=== PATIENT | female | born 1935 | race Caucasian/White ===

== ENCOUNTER 2019-07-28 12:51 | Outpatient (CLI) | payer MEDICARE, OTHER, SELFPAY ==
--- NOTE | 2019-07-28 14:00 | ECG_ITS ---
Measurements Intervals [place] Rate: 71 P: 60 ND: 120 QRS: -31 QRSD: 138 T: 90 QT: 417 QTc: 456 Interpretive Statements SINUS RHYTHM LEFT AXIS DEVIATION LEFT BUNDLE BRANCH BLOCK BASELINE ARTIFACT- I, II, III, AVR, AVL, AVF ABNORMAL ECG Electronically Signed On 07-28-2019 14:21:48 ENGINEERING DEPARTMENT CHAIR by Chad Crenshaw D.O.
[2019-07-28 14:27] LABS: Basophils Percent Auto 0.4 % (0.2-1.2); Eosinophils Absolute Auto 0.1 K/mm3 (0-0.3); Hematocrit 43.3 % (37.0-47.0); Hemoglobin 13.9 g/dL (12.0-15.0); Immature Granulocyte Absolute 0.01 K/mm3 (0.00-0.031); Immature Granulocyte Percent A 0.2 % (0-0.5); Lymphocytes Absolute Auto 1.45 K/mm3 (0.9-3.2); Lymphocytes Percent Auto 26.1 % (18.3-44.2); Mean Corpuscular HGB Conc 32.1 g/dl (32-36); Mean Corpuscular Hemoglobin 30.3 pg (26-34); Mean Corpuscular Volume 94.3 fl (80-100); Mean Platelet Volume 9.6 fl (7.4-10.4); Monocytes Absolute Auto 0.5 K/mm3 (0.1-0.6); Monocytes Percent Auto 9.4 % (2.6-8.5); Neutrophils Absolute Auto 3.5 K/mm3 (1.3-6.7); Neutrophils Percent Auto 61.9 % (45.5-73.1); Platelet Count Result 239 k/mm3 (150-375); Red Blood Count 4.59 M/mm3 (4.2-5.4); Red Cell Distribution Width 13.6 % (11.5-14.5); White Blood Count 5.6 K/mm3 (4.5-10.0)
[2019-07-28 14:30] LABS: Add Urine Microscopic? NO; Appearance Urine Clear (Clear); Bacteria Urine Trace /hpf; Bilirubin Urine Negative (Negative); Blood Urine Negative (Negative); Color Urine Yellow (Yellow); Glucose Urine UA Negative (Negative); Ketones Urine Negative (Negative); Leukocyte Esterase Ur Negative LEU/UL (Negative); Mucus Urine Rare /lpf; Nitrate Urine Negative (Negative); Protein Urine Negative (Negative); Specific Grav Ur 1.019 (1.001-1.035); Squamous Epithelial Cell Urine Rare /hpf (Few); Urobilinogen Urine Negative mg/dL (<2.0); WBC Urine 0-3 /hpf
[2019-07-28 14:36] LABS: Prothrombin Time 12.5 Seconds (11.1-14.7)
[2019-07-28 14:37] LABS: Urine Cotinine NEGATIVE
[2019-07-28 14:47] LABS: Albumin Level 4.3 g/dL (3.5-5.1); Blood Urea Nitrogen 23 mg/dL (7-17); Calcium 9.5 mg/dL (8.4-10.2); Carbon Dioxide 30 mmol/L (22-30); Chloride 102 mmol/L (98-107); Estimated Glomerular Filt Rate > 60; Glucose 99 mg/dL (65-105); Potassium 4.2 mmol/L (3.4-5.0); Sodium 140 mmol/L (137-145)
[2019-07-28 16:54] LABS: Hemoglobin A1C 5.7 % (<5.7)
== END 2019-07-28 12:52 | disposition home or self-care (01) ==
LOC: ANHSURGERY 12:55
PROVIDERS: PCP Family Medicine; Visit Provider Orthopaedic Surgery
DX: Z41.9 Encounter for procedure for purposes other than remedying health state, unspecified (principal); I44.7 Left bundle-branch block, unspecified; R94.31 Abnormal electrocardiogram [ECG] [EKG]
CPT/HCPCS: 36415; 80048; 80307; 81003; 82040; 83036; 85025; 85610; 85730; 86850; 86900; 86901; 87081; 93005

== ENCOUNTER 2019-10-05 14:41 | Outpatient (CLI) | payer MEDICARE, OTHER, SELFPAY ==
--- NOTE | ~2019-10-05 | MM_ITS ---
EXAMINATION: MM screening kitty BI w july HISTORY: Screening mammogram TECHNIQUE: Craniocaudal and mediolateral oblique 3-D tomosynthesis images were obtained and synthetic 2-D images were generated. CAD analysis was submitted and interpreted. COMPARISON: 08/09/2018 diagnostic left digital mammogram and limited left breast ultrasound 08/01/2018, 07/27/2017, 07/22/2016 bilateral digital screening mammogram examinations BREAST PARENCHYMAL COMPOSITION: There are scattered areas of fibroglandular density. FINDINGS: There is no evidence of suspicious mass, calcification, or architectural distortion to sugg est malignancy in either breast. There has been no suspicious interval change. IMPRESSION: 1. No mammographic evidence of malignancy. 2. Recommend routine screening mammography in one year. BI-RADS Category 1: Negative Reviewed, dictated and finalized at location A. ONAL COMPUTER SPECIALIST
== END 2019-10-05 14:42 | disposition home or self-care (01) ==
LOC: ANHIMG 14:51
PROVIDERS: PCP Family Medicine; Visit Provider Obstetrics & Gynecology
DX: Z12.31 Encounter for screening mammogram for malignant neoplasm of breast (principal)
CPT/HCPCS: 77063; 77067

== ENCOUNTER 2019-10-06 11:00 | Outpatient (RCR) | payer MEDICARE, OTHER, SELFPAY ==
--- NOTE | 2019-09-11 16:22 | PTOPEVAL ---
INITIAL PHYSICAL THERAPY EVALUATION and PLAN OF CARE Thank you for referring Katrin Rider to [facility]. Please review, sign, date and return this plan of care BETTY. She will be seen in PT 2x/wk x 4 wks. I agree with and certify that the following plan of care is medically necessary. Referring Physician Date Admitting Provider: Attending Provider: Lane Mehta MD Referring Provider: *PT Outpatient Evaluation Start: 09/11/19 14:47 Freq: Status: Active Protocol: Document 09/11/19 14:47 WILL (Rec: 09/11/19 16:22 WILL [id number]) Therapy Assessment Status Assessment Status Assessment Status Evaluation Outpatient Past Medical History Neurological History Hx Neurological Disorders No Significant History Cardiovascular History Hx Deep Vein Thrombosis Yes: 08/31/2019 Hx Other Cardiac Disorders Yes: DENEIS CARDIAC SYMPTOMS Respiratory History Hx Respiratory Disorders No Significant History Gastrointestinal History Hx Appendectomy Yes: 1971 Genitourinary History Hx Genitourinary Disorders No Significant History Musculoskeletal History Hx Arthritis Yes: GENERALIZED Hx Joint Replacement Yes: R TKA 08/08/19 Hx Orthopedic Surgery Yes: LT ROTATOR CUFF REPAIR JANUARY 2019 Hx Other Musculoskeletal Disorders Yes: HERE FOR RT TOTAL KNEE REPLACEMENT Hematological History Hx Hematological Disorders No Significant History Endocrine History Hx Endocrine Disorders No Significant History HEENT History Hx Cataracts Yes: BILATERAL SURGERY Hx Tonsillectomy Yes Hx Other HEENT Disorders Yes: GLASSES, SEASONAL ALLERGIES Integumentary History Hx Shingles Yes: HX OF RT WAIST Reproductive History Hx Tubal Ligation Yes Psychosocial History Hx Psychiatric Disorders No Significant History Pain History History of Any Previous or Ongoing No Significant History Instance of Pain Anesthesia History Hx Anesthesia Reactions No Significant History Evaluation Information Problem Diagnosis s/p R TKA Onset 08/08/19 Additional Evaluation Detail DVT - 08/31/2019 - wearing SIERRA Subjective Information hospitalized - 2 nights, home Query Text:As Reported By Patient/ health - 2x/wk ~ 4 visits CPM Family - used it HEP - ankle pumps, quad sets, SAQ, LAQ, SLR, gastroc stretching Sleeping on/off okay - taking Magnesium - sleeping a little better. Mornings not too bad. Begins
--- NOTE | 2019-10-06 12:10 | PTOPEVAL ---
PHYSICAL THERAPY DISCHARGE SUMMARY Thank you for referring Katrin Rider to [facility]. She has progressed well, met goals set, and ready for d/c to [facility]. I agree with Katrin Rider's discharge from physical therapy. Referring Physician Date Admitting Provider: Attending Provider: Lane Mehta MD Referring Provider: *PT Outpatient Evaluation Start: 09/11/19 14:47 Freq: Status: Active Protocol: Document 10/06/19 11:00 WILL (Rec: 10/06/19 12:10 WILL [id number]) Therapy Assessment Status Assessment Status Assessment Status Discharge Evaluation Information Problem Subjective Information Katrin Rider states that her knee Query Text:As Reported By Patient/ has stiffness rather than pain Family . She measures her R knee every morning - swelling has been about the same. She hasn 't gone down her basement steps as of yet, but has no difficulty with steps from garage to house. She has returned to usual household activities as well as back to driving without difficulties. Pain Assessment Timing of Pain Assessment Timing of Pain Assessment Assessment Pain Scale Pain Scale Used Numeric (1 - 10) Self Report Pain Assessment Right Knee(s) Reported Pain Level 0 Other Pain Description stiffness Current Pain Intensity 0 Lowest Pain Intensity 0 Greatest Pain Intensity 2 Pain Score Pain Score 0: Self Report Lower Extremity Range of Motion Knee Range of Motion Right Knee Flexion Range of Motion - Active 120 Knee Extension Range of Motion - Active 0 Query Text: Knee Range of Motion Limitations Edema Lower Extremity Muscle Strength Testing Hip Strength Right Hip Flexion Strength 4+ Good + Hip Extension Strength 4+ Good + Hip Abduction Strength 4- Good - Hip Medial Rotation Strength 5 Normal Hip Lateral Rotation Strength 5 Normal Knee Strength Right Knee Flexion Strength 5 Normal Knee Extension Strength 5 Normal Gait Assessment Gait Pattern Assessment Gait Pattern No Deviations/Normal Other Gait Observations symmetrical gait pattern, arm swing, pelvic/trunk rotation Stair Climbing Assessment Stair Climbing Assessment Stair Climbing Assistive Devices Railings Weight Bearing Status - Left Full Weight Bearing Status - Right Full Maintains Weight Bearing Status Yes Number of Steps Climbed (Steps) 4 Number of Repetitions (Repetitions) 2
== END 2019-10-06 12:10 | disposition home or self-care (01) ==
LOC: ANHHIPT 11:00
PROVIDERS: PCP Family Medicine; Visit Provider Orthopaedic Surgery
DX: Z47.1 Aftercare following joint replacement surgery (principal); Z96.651 Presence of right artificial knee joint
CPT/HCPCS: 97110; 97161

== ENCOUNTER 2020-04-04 12:41 | Outpatient (CLI) | payer MEDICARE, OTHER, SELFPAY ==
--- NOTE | ~2020-04-04 | US_ITS ---
EXAMINATION: US venous doppler LE RT DATE: 04/04/2020 13:28 INDICATION: Acute embolism and thrombosis of the right peroneal vein. TECHNIQUE: Grayscale ultrasound images without and with compression and Doppler ultrasound images of the right lower extremity veins were obtained. COMPARISON: None. FINDINGS: The visualized portions of right common femoral vein, profunda (deep) femoral vein, femoral vein, pop liteal vein, peroneal trunk, posterior tibial veins, peroneal veins, gastrocnemius vein and greater s aphenous vein outflow are patent. IMPRESSION: 1. No deep venous thrombosis in the right lower limb. Reviewed, dictated and finalized at location A.
== END 2020-04-04 12:42 | disposition home or self-care (01) ==
PROVIDERS: PCP Family Medicine; Visit Provider Family Medicine
DX: I82.451 Acute embolism and thrombosis of right peroneal vein (principal)
CPT/HCPCS: 93971

== ENCOUNTER 2020-10-23 09:58 | Outpatient (CLI) | payer MEDICARE, OTHER, SELFPAY ==
--- NOTE | ~2020-10-23 | MM_ITS ---
EXAMINATION: MM screening kitty BI w july HISTORY: Screening TECHNIQUE: Craniocaudal and mediolateral oblique 3-D tomosynthesis images were obtained and synthetic 2-D images were generated. CAD analysis was submitted and interpreted. COMPARISON: Comparison to multiple prior studies sequentially, with oldest reviewed study dated 06/24. BREAST PARENCHYMAL COMPOSITION: There are scattered areas of fibroglandular density. FINDINGS: There is no evidence of suspicious mass, calcification, or architectural distortion to sugg est malignancy in either breast. There has been no suspicious interval change. IMPRESSION: 1. No mammographic evidence of malignancy. 2. Recommend routine screening mammography in one year. BI-RADS Category 1: Negative Reviewed, dictated and finalized at location A. C APPLICATION DEVELOPER
== END 2020-10-23 09:59 | disposition home or self-care (01) ==
LOC: ANHIMG 09:59
PROVIDERS: PCP Family Medicine; Visit Provider Nurse Practitioner Family
DX: Z12.31 Encounter for screening mammogram for malignant neoplasm of breast (principal)
CPT/HCPCS: 77063; 77067

== ENCOUNTER 2021-10-27 10:31 | Outpatient (CLI) | payer MEDICARE, OTHER, SELFPAY ==
--- NOTE | ~2021-10-27 | MM_ITS ---
EXAMINATION: MM screening kitty BI w july HISTORY: Screening TECHNIQUE: Craniocaudal and mediolateral oblique 3-D tomosynthesis images were obtained and synthetic 2-D images were generated. CAD analysis was submitted and interpreted. COMPARISON: Comparison to multiple prior studies sequentially, with oldest reviewed study dated 06/25. BREAST PARENCHYMAL COMPOSITION: There are scattered areas of fibroglandular density. FINDINGS: There is no evidence of suspicious mass, calcification, or architectural distortion to sugg est malignancy in either breast. There has been no suspicious interval change. IMPRESSION: 1. No mammographic evidence of malignancy. 2. Recommend routine screening mammography in one year. BI-RADS Category 1: Negative Reviewed, dictated and finalized at location A. ATION SUPERVISOR
== END 2021-10-27 10:32 | disposition home or self-care (01) ==
LOC: ANHIMG 10:33
PROVIDERS: PCP Family Medicine; Visit Provider Family Medicine
DX: Z12.31 Encounter for screening mammogram for malignant neoplasm of breast (principal)
CPT/HCPCS: 77063; 77067

== ENCOUNTER 2022-09-28 15:29 | Outpatient (CLI) | payer MEDICARE, OTHER, SELFPAY ==
--- NOTE | ~2022-09-28 | XR_ITS ---
EXAMINATION: XR knee LT 2V DATE: 09/28/2022 15:59 INDICATION: Left knee pain TECHNIQUE: Weight bearing anteroposterior and Mendoza, sunrise, and flexed lateral views of the lef t knee were obtained COMPARISON: None. FINDINGS: Alignment is normal. No fracture. Mild to moderate joint space narrowing in the lateral compartment of the left knee. Normal joint space at the medial and patellofemoral compartments. Moderate to large left knee joint effusion. Soft tissues are otherwise unremarkable. IMPRESSION: 1. 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 2. Nonspecific moderate to large left knee joint effusion. Reviewed, dictated and finalized at location A. RMATION SERVICES MANAGER
--- NOTE | ~2022-09-28 | US_ITS ---
EXAMINATION: US venous doppler [facility] DATE: 09/28/2022 16:35 INDICATION: Prior right lower limb deep venous necrosis present with right lower limb swelling and pa in TECHNIQUE: Grayscale ultrasound images without and with compression and Doppler ultrasound images of the bilateral lower extremity veins were obtained. COMPARISON: None. FINDINGS: The visualized portions of right common femoral vein, profunda (deep) femoral vein, femoral vein, pop liteal vein, posterior tibial veins, peroneal veins, gastrocnemius vein and greater saphenous vein ou tflow are patent. The visualized portions of left common femoral vein, profunda femoral vein, femoral vein, popliteal v ein, posterior tibial veins, peroneal veins, gastrocnemius vein and greater saphenous vein outflow ar e patent. Small left knee joint effusion. IMPRESSION: 1. No deep venous thrombosis in either lower limb. 2. Small left knee joint effusion. Reviewed, dictated and finalized at location A. SHAKER
== END 2022-09-28 15:30 | disposition home or self-care (01) ==
PROVIDERS: PCP Family Medicine; Visit Provider Nurse Practitioner Family
DX: R60.0 Localized edema (principal); M25.562 Pain in left knee; Z86.718 Personal history of other venous thrombosis and embolism; M17.12 Unilateral primary osteoarthritis, left knee; M25.462 Effusion, left knee
CPT/HCPCS: 73560; 93970

== ENCOUNTER 2023-01-07 11:00 | Outpatient (RCR) | payer MEDICARE, OTHER, SELFPAY ==
--- NOTE | 2022-11-19 09:43 | PTOPEVAL1 ---
Assessment and note entered by Nighat Bess DPT Evaluation Information Assessment Status Evaluation Diagnosis knee pain Subjective Information Pt had right RKA in 2019. Has been having trouble with her left knee for the past few months. Was given a cortisone injection in the left mid-October. No plans for L TKA as of now. Pain at times with walking, reports fear of falling. No falls currently. Pt lives alone. Highest pain 5-6/10, and lowest 0/10. Reports feeling more stiffness in her right knee than pain. 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 Would like to get back to walking and riding her stationary bike. No return appointment scheduled. Reported Pain Level Pain Score 0: Self Report Assessment PT Clinical Summary The patient is presenting to skilled therapy with bilateral knee pain and a previous R TKA. She presents with decreased range of motion, decreased strength, and gait and balance impairments which are contributing to her pain and difficulty with walking and standing activities like cleaning at home. She will benefit from skilled therapy to address these impairments and safely reduce pain and dysfunction. Plan of Care Interventions Electrical Stimulation,Gait Training,Hot Pack/Cold Pack,Manual Therapy,Neuro Re-education,Patient/ Caregiver Education,Therapeutic Activities, Therapeutic Exercise,Self-Care/Home Management PT Services Indicated Yes Treatment Frequency and 2 times a week for 4 weeks Duration These treatments will address the objective and functional deficits as defined above. The patient will be advanced safely and appropriately in order for the patient to progress towards his/her prior level of function. Additional exercises will be introduced and as well as a comprehensive home exercise program upon discharge, if needed, ?to ensure carryover of functional gains achieved in the clinic. This treatment plan has been reviewed and agreement upon by the patient.
--- NOTE | 2022-12-16 11:05 | PCPTNOTE ---
Patient called & cancelled scheduled appointment 12/15/22 secondary to being ill.
--- NOTE | 2022-12-17 13:24 | PTOPPROG ---
Assessment and note entered by Mariana Silverio, PT Evaluation Information Assessment Status Progress Diagnosis knee pain Subjective Information Pt feels 90% improved overall. Feels more confident. Pt reports feels she has been doing a lot better . 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 No increases in pain w/ this activity. States felt better with the walking. Was able to do more time than her normal amount in volunteering also. Feels her fear of falling has improved some. States is extra careful where she puts her feet. Was able to start riding her stationary bike but knee got a little sore. ICed her knee after this and ice helped. Sometimes knee still hurts, doesn' t know if is the weather. Assessment PT Clinical Summary Pt has attended therapy consistently for knee pain for 7 visits. She shows improvement in her strength and range, as well as reports improvement in function. She cont to show deficits in weight bearing activities including difficulty w/ single leg balance, dynamic balance with walking, and decreased knee stability with sit>stand testing Plan of Care Interventions Electrical Stimulation,Gait Training,Hot Pack/Cold Pack,Manual Therapy,Neuro Re-education,Patient/ Caregiver Educati,Therapeutic Activities, Therapeutic Exercise,Self-Care/Home Management PT Services Indicated Yes Treatment Frequency and 4 visits in 30 days Duration These treatments will address the objective and functional deficits as defined above. The patient will be advanced safely and appropriately in order for the patient to progress towards his/her prior level of function. Additional exercises will be introduced and as well as a comprehensive home exercise program upon discharge, if needed, ?to ensure carryover of functional gains achieved in the clinic. This treatment plan has been reviewed and agreement upon by the patient.
--- NOTE | 2023-01-07 11:46 | PTOPDC ---
Assessment and note entered by Mariana Silverio, PT Assessment Status Discharge Diagnosis knee pain Subjective Information Pt reports has been able to walk around her yard and planting and is feeling good about this. Feels 95% improved. Still has some pain in the left knee sometimes w/ twisting wrong it startles her because is painful and feels like it going to go out of joint . Reports this happened the other day but hadn't happened in a long time prior to this and hasn't happened since. States this is not happening as often. Reports has been able to return to volunteering and stationary bike. Reported Pain Level Pain Score 0,3: Self Report Assessment PT Clinical Summary Pt reports feeling 95% improved overall. Reports she has been able to return to her prior activities like gardening, stationary bike, and volunteering. Pt has met most of her therapy related goals however has met all her personal and functional goals. Thus patient is being discharged for completion of her therapy program
== END 2023-01-07 13:12 | disposition home or self-care (01) ==
LOC: ANHHIPT 11:00
PROVIDERS: PCP Family Medicine; Visit Provider Orthopaedic Surgery
DX: M17.12 Unilateral primary osteoarthritis, left knee (principal); Z96.651 Presence of right artificial knee joint
CPT/HCPCS: 97110; 97112; 97116; 97140; 97161

== ENCOUNTER 2024-10-30 14:02 | Outpatient (CLI) | payer MEDICARE, OTHER, SELFPAY ==
--- NOTE | 2024-10-30 14:23 | ECG_ITS ---
Test Date: 2024-10-30 14:33:18 Measurements Intervals [place] Rate: 73 P: 66 CA: 129 QRS: -55 QRSD: 133 T: 83 QT: 407 QTc: 451 Interpretive Statements SINUS RHYTHM LEFT AXIS DEVIATION [QRS AXIS < -30] LEFT BUNDLE BRANCH BLOCK No previous ECG available for comparison Electronically Signed On 10-31-2024 14:29:20 CDT by Yodit Pagan M.D.
[2024-10-30 14:41] LABS: Basophils Percent Auto 0.5 % (0.2-1.2); Eosinophils Absolute Auto 0.1 K/mm3 (0-0.3); Hematocrit 40.5 % (37.0-47.0); Hemoglobin 13.1 g/dL (12.0-15.0); Immature Granulocyte Absolute 0.01 K/mm3 (0.00-0.031); Immature Granulocyte Percent A 0.2 % (0-0.5); Lymphocytes Percent Auto 21.6 % (18.3-44.2); Mean Corpuscular HGB Conc 32.3 g/dl (32-36); Mean Corpuscular Hemoglobin 30.8 pg (26-34); Mean Corpuscular Volume 95.1 fl (80-100); Mean Platelet Volume 9.3 fl (7.4-10.4); Monocytes Absolute Auto 0.5 K/mm3 (0.1-0.6); Monocytes Percent Auto 8.1 % (2.6-8.5); Neutrophils Absolute Auto 3.8 K/mm3 (1.3-6.7); Neutrophils Percent Auto 67.6 % (45.5-73.1); Platelet Count Result 199 k/mm3 (150-375); Red Blood Count 4.26 M/mm3 (4.2-5.4); Red Cell Distribution Width 13.6 % (11.5-14.5); White Blood Count 5.6 K/mm3 (4.5-10.0)
[2024-10-30 14:47] LABS: Add Urine Microscopic? YES; Appearance Urine Clear (Clear); Bacteria Urine None Seen /hpf; Bilirubin Urine Negative (Negative); Blood Urine Negative (Negative); Color Urine Yellow (Yellow); Glucose Urine UA Negative (Negative); Ketones Urine Negative (Negative); Leukocyte Esterase Ur Negative LEU/UL (Negative); Nitrate Urine Negative (Negative); Non Pathogenic Casts 0-2; Protein Urine 1+ mg/dL (Negative); RBC Urine 0-2 /hpf (0-2); Specific Grav Ur 1.019 (1.001-1.035); Squamous Epithelial Cell Urine None Seen /hpf (Few); WBC Urine 0-5 /hpf (0-3); pH Urine 6.5 (5.0-9.0)
[2024-10-30 14:52] LABS: Anion Gap 8 mmol/L (4-12); Blood Urea Nitrogen 22 mg/dL (7-17); Calcium 9.5 mg/dL (8.4-10.2); Carbon Dioxide 29 mmol/L (22-30); Chloride 102 mmol/L (98-107); Estimated Glomerular Filt Rate > 60; Glucose 88 mg/dL (65-110); Potassium 4.7 mmol/L (3.4-5.0); Sodium 139 mmol/L (137-145)
--- OUTSIDE RECORDS SUMMARY | 2024-10-30 16:19 | XMS_ITS | Continuity of Care Document ---
Author Organization [facility] Address [address] [place] [address] [address] [place] [address] Phone Care Team Providers Care Production Designer Name Role Phone Uriel Wu Unavailable Unavailable Procedures Procedure Date Office/outpatient Visit, Est Visual Field Examination-Professional Au Visual Field Examination(s) Office/outpatient Visit, Est No Charge Glasses Check Eye Exam & Treatment No Script Refraction Eye Exam & Treatment Refraction BF Plastic Sphcyl [place] To +/-4d .12-2d Frames Deluxe Tax - Medical Eye Exam & Treatment Refraction Advance Directives Directive Yes / No Effective Date File Name No Information Encounters Encounter Description Practice Location Reason(s) For Visit Diagnoses Date Provider Providers Copied on Encounter Office/outpat ient Visit, Est [facility], [address] [place] [address] [address], [place], [place], [id number], [place] tel:[phone] [facility] No Information [address] Bryce Trevino. [address] , [address], [place], [address], [place]. tel:[phone] [facility], [address], [place], [place], [id number], [place] tel:[phone] [facility] No Information [address] Doisy Edstephen. [address] , [address], [place], [place], [facility], [place]. tel:[phone] Referring Provider: Uriel Brunson, [address], [place], [facility]. tel:[phone] [facility], [address], [place], [place], [id number], [place] tel:[phone] [facility] No Information 4-201 0 Doisy Edstephen. [address] , [address], [place], [facility], [place]. tel:[phone] Referring Provider: [facility], [facility] [address], [place], [facility]. tel:[phone] Office/outpat ient Visit, [facility], [address], [place], [place], [id number], [place] tel:[phone] [facility] No Information 1-201 0 Doisy Edstephen. [facility] [address] , [address], [place], [facility], [place]. tel:[phone] [facility], [address], [place], [place], [id number], [place] tel:[phone] [facility] No Information [phone] 7-200 9 [address] Cyrus. [address] , [address], [place], [facility], [place]. tel:[phone] [facility], [address], [place], [place], [id number], [place] tel:[phone] [facility] No Information 3-200 9 Doisy Edstephen. [address], [address], [place], [facility], [place]. tel:[phone] [facility], [address], [place], [place], [id number], [place] tel:[phone] [facility] No Information [address] Bryce Trevino. [facility] [address] , [address], [place], [facility], . tel:[phone] [facility], [address], [place], [place], [id number], [place] tel:[phone] [facility] No Information [address] [employer] . [address] [facility], [address], [place], [place], [id number], [place]. tel:[phone] Referring Provider: Uriel Brunson, [address] [place] [address] [address], [place], [facility]. tel:[phone] sulting Provider: Kia Greer, [address] [place] [address], [facility]. tel:[phone] [facility], [address], [place], [place], [id number], [place] tel:[phone] [facility] No Information [address] Bryce Trevino. [address] [place] [address] [address], [address], [place], [facility], [place]. tel:[phone] Family History Family Member Type Diagnosis Age At Onset No Information Payers Payer name Insurance type Covered libertarian ID Authorraymonda debbie(s) Medicare [facility] [id number] Social History Type Description Quantity Date Captured Comments Sex Female Smoking Status No Information Chief Complaint And Reason For Visit No Information Reason For Referral Reason For Referral No Information History Of Present Illness Encounter Date Complaint History Of Prese nt Illness No Information Functional Status Date Functional Assessmen t No Information Instructions Date Instruction Additional Infor mation No Information Assessments Type Assessment Date No Information Patient Care Teams Name Effective Dates (start - stop) Status Members No Information
--- OUTSIDE RECORDS SUMMARY | 2024-10-30 16:19 | XMS_ITS | Encounter Summary ---
Author Organization [facility] Address [address] [place] [address] Care Team Providers Care Abrasive Mixer Helper Name Role Phone Unavailable Primary Care Provider Unavailabl e Encounter Details Date Type Department Care Team (Late st Contact Info) Description 04/11/2024 Lab Requisition [facility] - DermPath Lab [address] [place] [address] Jordy Mitchell MD [facility] DERMATOLOGY [address] [place] [phone] Basal cell carcinoma of skin of right upper limb, including shoulder Social History Tobacco Use Types Packs/Day Years Used Date Smoking Tobacco: Never Assessed Sex and Gender Information Value Date Recorded Sex Assigned at Not on file Gender Identity Not on file Sexual Orientation Not on file documented as of this encounter Plan of Treatment Not on file documented as of this encounter Procedures Procedure Name Priority Date/Time Associated Diagnosis Comments DERMATOPATHOLOGY Routine 04/11/2024 3:33 AM CDT Basal cell carcinoma of skin of right upper limb, including shoulder documented in this encounter Results * DERMATOPATHOLOGY (04/11/2024 3:33 AM CDT) Case Report Dermatopathology Report Case: [id number] Authorizing Provider: Jordy Mitchell MD Collected: 04/11/2024 03:33 AM Ordering Location: [facility] - Received: 04/12/2024 11:09 AM DermPath Lab Pathologist: Elsa Moore MD Specimen: Skin, right elbow 1:57 PM CDT DERMATOPATHOLOGY LABORATORY Final Diagnosis Specimen A. SKIN, right elbow: BASAL CELL CARCINOMA (C44.612) NOT PRESENT AT SAMPLED MARGIN DERMAL SCAR (L90.5) 1:57 PM CDT DERMATOPATHOLOGY LABORATORY Clinical History BCC Please check margins/prior biopsy report 1:57 PM T DERMATOPATHOLOGY LABORATORY Gross Description Specimen A: Received is one formalin filled container labeled with the patient's name and designated right elbow. The specimen consists of a [id number] mm piece of skin. The margin is inked green. The specimen is bisected lengthwise and submitted in 1 cassette. Jar 0. 1:57 PM [facility] DERMATOPATHOLOGY LABORATORY Microscopic Description Specimen A. SKIN, right elbow: Within the dermis there are aggregates of basaloid cells with a high nuclear to cytoplasmic ratio and peripheral palisading. This lesion is not present at the sampled margin of the specimen. There are fibroblasts and collagen bundles oriented parallel to the skin surface with elongated blood vessels, some of which are oriented perpendicular to the skin surface. 1:57 PM [facility] DERMATOPATHOLOGY LABORATORY Disclaimer An external and internal positive and negative controls are appropriate for the histochemical, immunohistochemical and immunofluorescence stain(s) in this case (if any), except where stated explicitly. The performance characteristics of the stain(s) cited in this report were developed and its performance characteristic determined by the Dermatopathology Laboratory at [facility], directed by Dr. Faheem Hooks. These tests need not be, and therefore are not, approved by the [place] Food and Drug Administration. The tests are used for clinical purposes. Billing Codes Specimen Charges Stain Charges 90898 1 1:57 PM CDT DERMATOPATHOLOGY LABORATORY Embedded Images 1:57 PM CDT DERMATOPATHOLOGY LABORATORY Pathology/Cytolo gy TISSUE SPECIMEN FROM SKIN / Unknown 04/11/2024 3:33 AM CDT 04/12/2024 11:09 AM CDT Jordy Mitchell MD LAB - PATHOLOGY/CYTO LOGY ORDERABLES DERMATOPATHOLOGY LABORATORY [facility] - Department of Dermatology [address] [phone] documented in this encounter Visit Diagnoses Diagnosis Basal cell carcinoma of skin of right upper limb, including shoulder Basal cell carcinoma of skin of upper limb, including shoulder documented in this encounter
--- OUTSIDE RECORDS SUMMARY | 2024-10-30 16:19 | XMS_ITS | Patient Health Summary ---
Author Organization [facility] Address [address] [place] [address] Care Team Providers Care Farmer General Name Role Phone Unavailable Primary Care Provider Unavailabl e Note from [facility],non-owned Affiliates and Associated Physician Practices is amultiple site organization consisting of ambulatory clinics and hospital sitesin [place], [place], [place] and [place]. This disclosure is being madepursuant to the Care Everywhere program and may not contain all information available regarding this patient. Last updated 18.[facility] [employer] Social History Tobacco Use Types Packs/Day Years Used Date Smoking Tobacco: Never Assessed Sex and Gender Information Value Date Recorded Sex Assigned at Not on file Gender Identity Not on file Sexual Orientation Not on file Procedures * DERMATOPATHOLOGY(Performed 04/11/2024) Performed for Basal cell carcinoma of skin of right upper limb, including shoulder Results * DERMATOPATHOLOGY (04/11/2024 3:33 AM CDT) Case Report Dermatopathology Report Case: [id number] Authorizing Provider: Jordy Mitchell MD Collected: 04/11/2024 03:33 AM Ordering Location: [facility] - Received: 04/12/2024 11:09 AM DermPath Lab Pathologist: Elsa Moore MD Specimen: Skin, right elbow 1:57 PM CDT DERMATOPATHOLOGY LABORATORY Final Diagnosis Specimen A. SKIN, right elbow: BASAL CELL CARCINOMA (C44.612) NOT PRESENT AT SAMPLED MARGIN DERMAL SCAR (L90.5) 1:57 PM CDT DERMATOPATHOLOGY LABORATORY Clinical History BCC Please check margins/prior biopsy report 1:57 PM CDT DERMATOPATHOLOGY LABORATORY Gross Description Specimen A: Received is one formalin filled container labeled with the patient's name and designated right elbow. The specimen consists of a [id number] mm piece of skin. The margin is inked green. The specimen is bisected lengthwise and submitted in 1 cassette. Jar 0. 4 1:57 PM CDT DERMATOPATHOLOGY LABORATORY Microscopic Description Specimen A. SKIN, [...] are oriented perpendicular to the skin surface. 4 1:57 PM CDT DERMATOPATHOLOGY LABORATORY Disclaimer An external and internal positive and negative controls are appropriate for the histochemical, immunohistochemical and immunofluorescence stain(s) in this case (if any), except where stated explicitly. The performance characteristics of the stain(s) cited in this report were developed and its performance characteristic determined by the Dermatopathology Laboratory at [facility], directed by Dr. Faheem Hooks. These tests need not be, and therefore are not, approved by the [place] Food and Drug Administration. The tests are used for clinical purposes. Billing Codes Specimen Charges Stain Charges 60103 1 4 1:57 PM CDT DERMATOPATHOLOGY LABORATORY Embedded Images 4 1:57 PM CDT DERMATOPATHOLOGY LABORATORY Pathology/Cytolo gy TISSUE SPECIMEN FROM SKIN / Unknown 04/11/2024 3:33 AM CDT 04/12/2024 11:09 AM CDT Jordy Mitchell MD LAB - PATHOLOGY/CYTO LOGY ORDERABLES DERMATOPATHOLOGY LABORATORY [facility] - Department of Dermatology [address] [phone]
--- OUTSIDE RECORDS SUMMARY | 2024-10-30 16:19 | XMS_ITS | Clinical Summary ---
Author Organization [facility] Address [facility] [place] [address] Care Team Providers Care Dairy Husbandry Teacher Name Role Phone Savanah Howell [facility] Primary Care Provider + Allergies No known active allergies Medications aspirin EC (ECOTRIN) 81 MG tablet Take 1 tablet (81 mg total) by mouth daily. Active vitamin C (ASCORBIC ACID) 1000 MG tablet Take 1 tablet (1,000 mg total) by mouth daily. Active Cholecalciferol (VITAMIN D3) 250 MCG (12013 UT) Cap Take 2,000 Int'l Units/day by mouth daily. Active Calcium Carbonate-Vitamin D (CALTRATE 600+D OR) Take by mouth daily. Active Multiple Vitamins-Minerals (ICAPS) Tab Take 1 tablet by mouth 2 (two) times a day. Active lactobacillus (FLORANEX) tablet Take 1 tablet by mouth daily. Active Polyvinyl Alcohol-Povidone (REFRESH OP) Active meloxicam (MOBIC) 7.5 MG tabletIndications:A cute pain of left knee,Primary osteoarthritis of left knee,Effusion of left knee Take 1 tablet (7.5 mg total) by mouth 2 (two) times a day. 60 tablet 1 4 Active lisinopril (PRINIVIL) 5 MG tabletIndications:E ssential hypertension, benign TAKE 1 TABLET(5 MG) BY MOUTH DAILY 90 tablet 5 Active Active Problems Problem Noted Date Diagnosed Date Knee pain, left 06/19/2024 Right-sided low back pain with sciatica 05/30/20 24 Primary osteoarthritis of left knee 06/16/2023 Osteopenia of multiple sites 06/16/2023 Prediabetes 06/16/2023 History of DVT (deep vein thrombosis) 06/16/2023 Overview (06/16/2023): Right leg 2019 Essential hypertension, benign 12/07/2022 Aortic valve regurgitation 12/03/2022 Encounters Date Type Department Care Team Description 08/08/2024 11:10 AM TITLE ASSISTANT - 08/08/2024 11:59 PM [facility] Hospital Encounter [facility] [address] [place] [address] Millicent Rivera PA-C Arentsen, Anita A, [employer] OFFBEARER Lower Extremity Pain Discharge Disposition: Home or Self Care (Routine Discharge) 08/08/2024 Travel 08/04/2024 10:06 AM TITLE ASSISTANT - 08/04/2024 11:59 PM [facility] Hospital Encounter [facility] [address] [place] [address] Millicent Rivera PA-C Irving, Christy L, PT Knee Pain Discharge Disposition: Home or Self Care (Routine Discharge) 08/04/2024 Travel from Last 3 Months Immunizations Name Administration Dates Next Due Fluzone High Dose - >Age 65 (Prefilled Syringe) 05/19/2023 MODERNA COVID-19 (12+) MRNA, LNP-S, PF, 100 MCG/ 0.5 ML DOSE 09/17/2020,08/20/2020 Pneumococcal (Pneumovax 23) 07/24/2004 Pneumococcal (Prevnar 13) 07/10/2020 Tdap (Adacel) 05/09/2016 Tdap (Generic) 05/08/2016,07/24/2004 Zoster (Zostavax) [address] Unt/0.65Ml 08/23/2010 Family History Medical History Relation Comments Heart Disease Brother Leukemia Father CHF Mother Hypertension Mother CHF Sister Relation Status Comments Brother Alive Father Maternal Grandfather Maternal Grandmother Mother Paternal Grandfather Paternal Grandmother Sister Social History Tobacco Use Types Packs/Day Years Used Date Smoking Tobacco: Never Smokeless Tobacco: Never Tobacco Cessation:Counseling Given: No Alcohol Use Standard Drinks/Week Comments Not Currently 0 (1 standard drink = 0.6 oz pur e alcohol) PHQ-2 Answer Date Recorded Patient Health Questionnaire-2 Score 0 11/16/2023 Comments Unknown Sex and Gender Information Value Date Recorded Sex Assigned at Not on file Legal Sex Female 5:20 PM CDT Gender Identity Not on file Sexual Orientation Not on file Last Filed Vital Signs Vital Sign Reading Time Taken Comments Blood Pressure 144/60 06/19/2024 1:55 PM CDT Pulse 74 06/19/2024 1:55 PM CDT Temperature 36.1 C (96.9 F) 06/14/2024 2:09 PM CDT Respiratory Rate 19 06/14/2024 2:09 PM CDT Oxygen Saturation 97% 06/19/2024 1:55 PM CDT Inhaled Oxygen Concentration - - Weight 54 kg (119 lb) 06/19/2024 1:55 PM CDT Height 154.9 cm (5' 1 ) 06/19/2024 1:55 PM CDT Body Mass Index 22.48 06/19/2024 1:55 PM CDT Plan of Treatment Upcoming Encounters Date Type Department Care Team (Late st Contact Info) Description 11/17/2024 1:40 PM CDT Office Visit [facility] Family & Internal Medicine [facility] [address] [place] [address] Savanah Howell, STATISTICAL MODELER- [address], [address] [place] [address] 12/18/2024 10:00 AM CDT Appointment [facility] [address] [place], [place] [phone] Ara Blanc, STATISTICAL MODELER [address] [address] 12/25/2024 1:00 PM CDT [facility] [address] [place] [phone] Saurav Rock MD [facility]. [facility] [address] [place] [address] Health Maintenance Due Date Last Done Comments Annual Medicare Wellness Visit 2000 RSV Immunization or 60+ Years (1 - 1-dose 75+ series) 2010 Zoster Vaccines (2 of 3) 10/18/2010 08/23/2010 COVID-19 Vaccine (3 - 2023-2 5 season) 2024 09/17/2020, 08/20/2020 Influenza Adult (#1) 2024 05/19/2023 PHQ-2 (Physician [place]) 08/23/2024 11/16/2023 DTaP, Tdap and Td Vaccines ( 4 - Td or Tdap) 05/09/2026 05/09/2016, 05/08/2016, 07/24/2004 Pneumococcal Vaccine: 65+ Years Completed 07/10/2020, 07/24/2004 Meningococcal B Vaccine Aged Out No l onger eligible based on patient's age to complete this topic Meningococcal Vaccine Aged Out No emelia monica eligible based on patient's age to complete this topic RSV Immunizations Under 20 Months Aged Out No longer eligible b ased on patient's age to complete this topic Insurance MEDICARE [facility] Advance Directives Documents on File Type Date Recorded Patient Police Cadet Expl anation Advance Directives and Living Will 12/02/2018 12:00 AM POWER OF REPORT WRITER FO R HEALTH CARE Advance Directives and Living Will 10/14/2018 12:00 AM POWER OF REPORT WRITER FO R HEALTH CARE Advance Directives and Living Will 02/04/2018 12:00 AM POWER OF REPORT WRITER FO R HEALTH CARE Advance Directives and Living Will 02/04/2018 12:00 AM POWER OF REPORT WRITER FO R HEALTH CARE Advance Directives and Living Will 05/09/2016 12:00 AM POWER OF REPORT WRITER FO R HEALTH CARE Advance Directives and Living Will 05/09/2016 12:00 AM POWER OF REPORT WRITER FO R HEALTH CARE Advance Directives and Living Will 01/12/2016 12:00 AM POWER OF REPORT WRITER FO R HEALTH CARE Advance Directives and Living Will 01/12/2016 12:00 AM POWER OF REPORT WRITER FO R HEALTH CARE Care Teams Dairy Husbandry Teacher Relationship Specialty Start Date End Date Savanah Howell, STATISTICAL MODELER-BC [address], [address] [place] [address] PCP - General Nurse Practitioner Family 10/13/24
--- OUTSIDE RECORDS SUMMARY | 2024-10-30 16:20 | XMS_ITS | Referral Summary ---
Author Organization [facility] Address [address] [place] [address] Care Team Providers Care Senior Net Programmer Name Role Phone Unavailable Primary Care Provider Unavailabl e Source Comments [facility],non-owned Affiliates and Associated Physician Practices is amultiple site organization consisting of ambulatory clinics and hospital sitesin [place], [place], [place] and [place]. This disclosure is being madepursuant to the Care Everywhere program and may not contain all information available regarding this patient. Last updated 18.[facility] [employer] Social History Tobacco Use Types Packs/Day Years Used Date Smoking Tobacco: Never Assessed Sex and Gender Information Value Date Recorded Sex Assigned at Not on file Gender Identity Not on file Sexual Orientation Not on file Plan of Treatment Not on file
--- OUTSIDE RECORDS SUMMARY | 2024-10-30 16:20 | XMS_ITS | Referral Summary ---
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
--- OUTSIDE RECORDS SUMMARY | 2024-10-30 16:20 | XMS_ITS | Clinical Summary ---
Author Organization [facility] Address [address] [facility] [place] [address] Care Team Providers Care Technical Internship Name Role Phone Unavailable Primary Care Provider Unavailabl e Source Comments [facility] [employer]non-owned Affiliates and Associated Physician Practices is amultiple site organization consisting of ambulatory clinics and hospital sitesin [place], [place], [place] and [place]. This disclosure is being madepursuant to the Care Everywhere program and may not contain all information available regarding this patient. Last updated 18.[facility] [employer] Social History Tobacco Use Types Packs/Day Years Used Date Smoking Tobacco: Never Assessed Sex and Gender Information Value Date Recorded Sex Assigned at Not on file Gender Identity Not on file Sexual Orientation Not on file Plan of Treatment Health Maintenance Due Date Last Done Comments BONE DENSITY TESTING 1935 MEDICARE AWV 12 MONTHS 1935 DTAP/TDAP/TD VACCINES (1 - Tdap) 1954 PNEUMOCOCCAL VACCINE 50+ (1 of 1 - PCV) 1985 ZOSTER VACCINE (1 of 2) 1985 Respiratory Syncytial Virus (RSV) Vaccine Pt: or over 60 yrs (1 - 1-dose 75+ series) 2010 COVID-19 VACCINE ( - 2023-2 5 season) 2024 INFLUENZA VACCINE (#1) 2024 DEPRESSION SCREENING 08/23/2024 HEPATITIS B VACCINE Aged Out No longe r eligible based on patient's age to complete this topic HIB VACCINE Aged Out No longer eligi ble based on patient's age to complete this topic HPV VACCINE Aged Out No longer eligi ble based on patient's age to complete this topic MENINGOCOCCAL (Group B) VACCINE Aged Out No longer eligible based on patient's age to complete this topic MENINGOCOCCAL VACCINE Aged Out No emelia monica eligible based on patient's [place] [address]
--- OUTSIDE RECORDS SUMMARY | 2024-10-30 16:20 | XMS_ITS | Clinical Summary ---
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
[2024-10-30 17:09] LABS: Hemoglobin A1C 5.6 % (<5.7)
== END 2024-10-30 14:03 | disposition home or self-care (01) ==
PROVIDERS: PCP Family Medicine; Visit Provider Nurse Practitioner Family
DX: E11.9 Type 2 diabetes mellitus without complications (principal); R53.83 Other fatigue; I10 Essential (primary) hypertension; R60.0 Localized edema
CPT/HCPCS: 36415; 80048; 81001; 83036; 85025; 93005

== ENCOUNTER 2024-12-06 13:36 | Outpatient (CLI) | payer MEDICARE, OTHER, SELFPAY ==
--- OUTSIDE RECORDS SUMMARY | 2024-12-06 14:52 | XMS_ITS | Continuity of Care Document ---
Author Organization [facility] Address [address] [place] [address] [address] [place] [address] Phone Care Team Providers Care Elevator Repairer Helper Name Role Phone Uriel Wu Unavailable Unavailable Procedures Procedure Date Office/outpatient Visit, Est Visual Field Examination-Professional Au Visual Field Examination(s) Office/outpatient Visit, Est No Charge Glasses Check Eye Exam & Treatment No Script Refraction Eye Exam & Treatment Refraction BF Plastic Sphcyl [place] To +/-4d .12-2d Frames Deluxe Tax - Medical Eye Exam & Treatment Refraction Advance Directives Directive Yes / No Effective Date File Name No Information Encounters Encounter Description Practice Location Reason(s) For Visit Diagnoses Date Provider Providers Copied on Encounter Office/outpat ient Visit, Est [facility], [address] [place] [address] [address], [place], [place], [id number], [place] tel:[phone] [facility] No Information 8201 0 Bryce Trevino. [address] , [address], [place], [address], [place]. tel:[phone] [facility], [address], [place], [place], [id number], [place] tel:[phone] [facility] No Information 6201 0 Doisy Edstephen. [address] , [address], [place], [place], [facility], [place]. tel:[phone] Referring Provider: Uriel Brunson, [address], [place], [facility]. tel:[phone] [facility], [address], [place], [place], [id number], [place] tel:[phone] [facility] No Information 4-201 0 Doisy Edstephen. [address] , [address], [place], [place], [facility], [place]. tel:[phone] Referring Provider: Uriel Brunson, [facility] [address], [place], [facility]. tel:[phone] Office/outpat ient Visit, [facility], [address], [place], [place], [id number], [place] tel:[phone] [facility] No Information 1-201 0 Doisy Edstephen. [facility] [address] , [address], [place], [facility], [place]. tel:[phone] [facility], [address], [place], [place], [id number], [place] tel:[phone] [facility] No Information 0 7-200 9 Mo OD Cyrus. [address] , [address], [place], [facility], [place]. tel:[phone] [facility], [address], [place], [place], [id number], [place] tel:[phone] [facility] No Information 3-200 9 Doisy Edstephen. [address], [address], [place], [facility], [place]. tel:[phone] [facility], [address], [place], [place], [address], [place] tel:[phone] [facility] No Information 7200 8 Bryce Trevino. [facility] [address] [address] , [address], [place], [facility], . tel:[phone] [facility], [address], [place], [place], [address], [place] tel:[phone] [facility] No Information 5200 [address] [employer] . [address], [address], [place], [place], [address], [place]. tel:[phone] Referring Provider: Uriel Brunson, [address] [place] [address] [address], [place], [facility]. tel:[phone] sulting Provider: Kia Greer, [address] [place] [address], [facility]. tel:[phone] [facility], [address], [place], [place], [address], [place] tel:[phone] [facility] No Information 0200 7 Bryce Trevino. [address] [place] [address] [address], [address], [place], [facility], [place]. tel:[phone] Family History Family Member Type Diagnosis Age At Onset No Information Payers Payer name Insurance type Covered alliance party ID Authorraymonda debbie(s) Medicare [facility] [id number] Social History Type Description Quantity Date Captured [...]
--- OUTSIDE RECORDS SUMMARY | 2024-12-06 14:52 | XMS_ITS | Encounter Summary ---
Author Organization [facility] Address [facility] [place] [address] Care Team Providers Care Pig Farmer Name Role Phone Millicent Rivera PA-C Primary Care Provider [phone] Savanah Howell [facility] Primary Care Provider + Encounter Details Date Type Department Care Team (Latest Contact Info) Description 06/20/2024 Scan HEALTH INFO [facility] Scanned, Doc Med Group Social History Tobacco Use Types Packs/Day Years Used Date Smoking Tobacco: Never Smokeless Tobacco: Never Alcohol Use Standard Drinks/Week Comments Not Currently 0 (1 standard drink = 0.6 oz pur e alcohol) PHQ-2 Answer Date Recorded Patient Health Questionnaire-2 Score 0 11/17/2024 Comments Unknown Sex and Gender Information Value Date Recorded Sex Assigned at Female 11/17/2024 1:40 PM CDT Legal Sex Female 5:20 PM CDT Gender Identity Female 11/17/2024 1:40 PM CDT Sexual Orientation Not on file documented as of this encounter Functional Status * Over the past 2 weeks, how often have you been bothered by any of the following problems? Question Answer Date of Assessment Author Status Little interest or pleasure in doing things Not at all 11/17/2024 2:36 PM CDT Betty Mcclure MA Act meg Feeling down, depressed, or hopeless Not at all 11/17/2024 2:36 PM Betty Yost MA Active Patient Health Questionnaire-2 Score 0 11/17/2024 2:36 PM Betty Yost MA Active * Question Answer Date of Assessment Author Status Trouble falling or staying asleep, or sleeping too much Not at all 11/17/2024 2:36 PM Betty Yost MA Active Feeling tired or having little energy Several days 11/17/2024 2:36 PM Betty Yost MA Active Poor appetite or overeating Not at all 11/17/2024 2:36 PM Betty Yost MA Active Feeling bad about yourself - or that you are a failure or have let yourself or your family down Not at all 11/17/2024 2:36 PM Betty Yost MA Active Trouble concentrating on things, such as reading the newspaper or watching television Not at all 11/17/2024 2:36 PM Betty Yost MA Active Moving or speaking so slowly that other people could have noticed? Or the opposite - being so fidgety or restless that you have been moving around a lot more than usual. Not at all 11/17/2024 2:36 PM Betty Yost MA Active Thoughts that you would be better off or hurting yourself in some way Not at all 11/17/2024 2:36 PM Betty Yost MA Active Patient Health Questionnaire-9 Score 1 11/17/2024 2:36 PM Betty Yost MA Active * Calculated C-SSRS Risk Score (Lifetime/Recent) Answer Date of Assessment Author Status No Risk Indicated 11/17/2024 1:42 PM Gris Yost MA Active * If you checked off any problems on this questionnaire so far, Question Answer Date of Assessment Author Status How difficult have these problems made it for you to do your work, take care of things at home, or get along with other people? Not difficult at all 11/17/2024 2:36 PM Betty Yost MA Active * Over the last 2 weeks, how often have you been bothered by any of the following problems? Question Answer Date of Assessment Author Status Feeling nervous, anxious, or on edge 0 11/17/2024 2:36 PM CDT Betty Mcclure MA Act meg Not being able to stop or control worrying 0 11/17/2024 2:36 PM CDT Betty Mcclure MA Ac tive Worrying too much about different things 0 11/17/2024 2:36 PM CDT Betty Mcclure MA Ac tive Trouble relaxing 0 11/17/2024 2:36 PM CDT Betty Mcclure MA Active Being so restless that it is hard to sit still 0 11/17/2024 2:36 PM CDT Betty Mcclure M A Active Becoming easily annoyed or irritable 0 11/17/2024 2:36 PM CDT Betty Mcclure MA Act meg Feeling afraid as if something awful might happen 0 11/17/2024 2:36 PM CDT Betty Mcclure MA Act meg LAKESHIA-7 Total Score 0 11/17/2024 2:36 PM CDT Betty Salinsa MA Active * [place] Suicide Severity Rating Scale (Screener/Recent Self-Report) Question Answer Date of Assessment Author Status 1. Wish to be (Past 1 Month) No 11/17/2024 1:42 PM CDT Betty Mcclure MA Act meg 2. Non-Specific Active Suicidal Thoughts (Past 1 Month) No 11/17/2024 1:42 PM CDT Betty Mcclure MA Act meg 6. Suicidal Behavior (Lifetime) No 11/17/2024 1:42 PM CDT Betty Mcclure MA Act meg documented as of this encounter Plan of Treatment Upcoming Encounters Date Type Department Care Team (Late st Contact Info) Description 05/21/2025 10:15 AM CDT Office Visit [facility] [address] [place] [address] Saurav Rock MD [address] [address] 05/21/2025 1:40 PM CDT Office Visit [facility] Family & Internal [facility] [address] [place] [address] Savanah Howell FNP-BC [address] [place] [address], [address] [place] [phone] documented as of this encounter Visit Diagnoses Not on filedocumented in this encounter Care Teams Pig Farmer Relationship Specialty Start Date End Date Millicent Rivera PA-C PCP - General PHYSICIAN PASTRY ARTIST 09/06/23 10/12/24 Savanah Howell FNP-BC [address] [place], [place] [address]raúl Mayen, [address] [place] [address] PCP - General Nurse Practitioner Family 10/13/24 documented as of this encounter
--- OUTSIDE RECORDS SUMMARY | 2024-12-06 14:52 | XMS_ITS | Clinical Summary ---
Author Organization [facility] [address] Address [address] [place] [address] Care Team Providers Care Civil Litigation Attorney Name Role Phone Aliya Asif MD Primary Care Provider Allergies No known active allergies Social History Tobacco Use Types Packs/Day Years Used Date Smoking Tobacco: Never Assessed Personal Safety Answer Date Recorded Getting School Help Needed Not on file 11/04 Comments Unknown Sex and Gender Information Value Date Recorded Sex Assigned at Not on file Legal Sex Female 3:04 AM HAND BINDER STRIPPER Gender Identity Not on file Sexual Orientation Not on file Plan of Treatment Not on file Insurance MEDICARE [facility] Care Teams Civil Litigation Attorney Relationship Specialty Start Date End Date Aliya Asif MD PCP - General Family Practice 12/02/18
--- OUTSIDE RECORDS SUMMARY | 2024-12-06 14:52 | XMS_ITS | Referral Summary ---
Author Organization [facility] [address] Address [address] [place] [address] Care Team Providers Care Build Manager Name Role Phone Aliya Asif MD Primary Care Provider Allergies No known active allergies Social History Tobacco Use Types Packs/Day Years Used Date Smoking Tobacco: Never Assessed Personal Safety Answer Date Recorded Getting School Help Needed Not on file 11/04 Comments Unknown Sex and Gender Information Value Date Recorded Sex Assigned at Not on file Legal Sex Female 3:04 AM JEWEL STRINGER Gender Identity Not on file Sexual Orientation Not on file Plan of Treatment Not on file Insurance MEDICARE [facility] Care Teams Build Manager Relationship Specialty Start Date End Date Aliya Asif MD PCP - General Family Practice 12/02/18
--- OUTSIDE RECORDS SUMMARY | 2024-12-06 14:52 | XMS_ITS | Clinical Summary ---
Author Organization [facility] Address [address] [place] [address] Care Team Providers Care Peoplesoft Hcm Consultant Name Role Phone Savanah Howell [facility] Primary Care Provider + Allergies No known active allergies Medications aspirin EC (ECOTRIN) 81 MG tablet Take 1 tablet (81 mg total) by mouth daily. Active vitamin C (ASCORBIC ACID) 1000 MG tablet Take 1 tablet (1,000 mg total) by mouth daily. Active Cholecalciferol (VITAMIN D3) 250 MCG (37696 UT) Cap Take 2,000 Int'l Units/day by mouth daily. Active Calcium Carbonate-Vitamin D (CALTRATE 600+D OR) Take by mouth daily. Active Multiple Vitamins-Minerals (ICAPS) Tab Take 1 tablet by mouth 2 (two) times a day. Active lactobacillus (FLORANEX) tablet Take 1 tablet by mouth daily. Active Polyvinyl Alcohol-Povidone (REFRESH OP) Active lisinopril (PRINIVIL) 5 MG tabletIndications: Essential hypertension, benign TAKE 1 TABLET(5 MG) BY MOUTH DAILY 90 tablet 5 Active meloxicam (MOBIC) 7.5 MG tabletIndications: Acute pain of left knee,Primary osteoarthritis of left knee,Effusion of left knee Take 1 tablet (7.5 mg total) by mouth 2 (two) times a day. 60 tablet 1 11/18/19 25 Discontinu ed(Therapy completed) Active Problems Problem Noted Date Diagnosed Date Knee pain, left 06/19/2024 Right-sided low back pain with sciatica 05/30/20 Primary osteoarthritis of left knee 06/16/2023 Osteopenia of multiple sites 06/16/2023 Prediabetes 06/16/2023 History of DVT (deep vein thrombosis) 06/16/2023 Overview (06/16/2023): Right leg 2019 Essential hypertension, benign 12/07/2022 Aortic valve regurgitation 12/03/2022 Encounters Date Type Department Care Team Description 11/29/2024 1:00 PM CDT Office Visit [facility] Family & Internal [address] [phone] Savanah Howell FNP-BC Surgical Clearance (surgical clearance left knee 12/19/24) 11/29/2024 Travel 11/20/2024 11:30 AM CDT Office Visit [facility] [address] [address] Ara Blanc FNP Surgical Clearance ([facility]-TBD); Aortic Valve Stenosis 11/20/2024 Travel 11/17/2024 1:40 PM CDT Office Visit [facility] Internal [address] [phone] Savanah Howell FNP-BC Follow Up (6 mo f/u ) 11/17/2024 9:51 AM CDT - 11/17/2024 11:59 PM CDT Hospital Encounter [facility] [address] [place] [address] Ara Blanc FNP Discharge Disposition: Home or Self Care (Routine Discharge) 11/17/2024 Travel 11/06/2024 1:36 PM CDT - 11/06/2024 11:59 PM CDT Hospital Encounter [facility] [address] [place] [address] Jessi Dillard NP Discharge Disposition: Home or Self Care (Routine Discharge) 11/06/2024 Travel 11/01/2024 Telephone [facility], [address] [address] Saurav oRck MD Surgical Clearance 10/30/2024 Scan [facility], [place] [address] [place] [address] Scanned, Doc Pccl from Last 3 Months Immunizations Immunization Administration Dates Next Due Arexvy Respiratory Syncytial Virus (RSV, adjuvanted) 0.5 mL, PF 06/03/2023 Fluzone High Dose - >Age 65 (Prefilled Syringe) 05/19/2023,05/11/2022,05/29/2021 Influenza (Generic) 05/06/2020 Influenza Adult (Generic) 06/09/2024,06/06/2019 MODERNA COVID-19 (12+) MRNA, LNP-S, PF, 100 MCG/ 0.5 ML DOSE 09/17/2020,08/20/2020 Pneumococcal (Pneumovax 23) 07/24/2004 Pneumococcal (Prevnar 13) 07/10/2020 Td, Adsorbed, Preservative F ree, Adult Use, Lf Unspecified 05/08/2016,07/24/2004 Tdap (Adacel) 05/09/2016 Tdap (Generic) 05/08/2016,07/24/2004 Zoster (Zostavax) [address] Unt/0.65Ml 08/23/2010 Family History Medical History Relation [...] PM CDT Sexual Orientation Not on file Last Filed Vital Signs Vital Sign Reading Time Taken Comments Blood Pressure 142/70 11/29/2024 12:57 PM CDT Pulse 83 11/29/2024 12:57 PM CDT Temperature 36.1 C (97 F) 11/29/2024 12:57 PM CDT Respiratory Rate 16 11/29/2024 12:57 PM CDT Oxygen Saturation 97% 11/29/2024 12:57 PM CDT Inhaled Oxygen Concentration - - Weight 53.5 kg (118 lb) 11/29/2024 12:57 PM CDT Height 154.9 cm (5' 1 ) 11/29/2024 12:57 PM CDT Body Mass Index 22.3 11/29/2024 12:57 PM CDT Plan of Treatment Upcoming Encounters Date Type Department Care Team (Late st Contact Info) Description 05/21/2025 10:15 AM CDT [facility] [address] [place] [address] Saurav Rock MD [address] [address] 05/21/2025 1:40 PM CDT Office Visit [facility] Family & Internal Medicine - [place] [address] [place] [address] Savanah Howell, GREENHOUSE OR NURSERY TRANSPLANTER- [address] [facility], [address] [place] [address] Health Maintenance Due Date Last Done Comments Annual Medicare Wellness Visit 05/20/2025 Postponed from 2000 (Future Appointment) COVID-19 Vaccine ( season) 2025 06/20/2024, 05/28/2023, 05/11/2022, Additional history exists Postponed from 12/19/2024 (Patient Refused) Zoster Vaccines (2 of 3) 11/17/2025 08/23/2010 Pos tponed from 10/18/2010 (Patient Refused) DTaP, Tdap and Td Vaccines (6 - Td or Tdap) 05/09/2026 05/09/2016, 05/08/2016, 05/08/2016, Additional history exists Pneumococcal Vaccine: 50+ Years Completed 07/10/2020, 07/24/2004 RSV Immunization or 60+ Years Completed 06/03/2023 PHQ-2 (Physician Minto) Completed 11/17/2024 Meningococcal B Vaccine Aged Out No l onger eligible based on patient's age to complete this topic Meningococcal Vaccine Aged Out No emelia monica eligible based on patient's age to complete this topic RSV Immunizations Under 20 Months Aged Out No longer eligible based on patient's age to complete this topic Procedures Procedure Name Priority Date/Time Associated Diagnosis Comments USE ECHOCARDIOGRAM Routine 11/17/2024 10 :34 AM CDT Aortic valve insufficiency, etiology of cardiac valve disease unspecified USV EMMANUELLE DUPLEX LOW EXT KENDRICK Routine 11/06/2024 2:24 PM CDT Pain in left lower leg Pain in right lower leg ECG GENERIC (SCAN ORDER) Routine 10/30/2024 from Last 3 Months Results * USE ECHOCARDIOGRAM (11/17/2024 10:34 AM CDT) Anatomical Region Laterality Modality Cardiac Ultrasound 11/17/2024 9:57 AM CDT Narrative 11/17/2024 1:14 PM CDT LIT CANO Pat.Name: Katrin Velazquez Pat.ID: [id number] .Date: 11/17/2024 Refer.: Rachael, [facility] ([facility] Radiology Exam Time: 9:57:00 AM Study Type:RACHAEL Height: 60 in Weight: 120 lb BSA: 1.5 m2 Age: 8 1935,89Y Sex: F Sonogrphr: Dolores Pat. Stat.:Outpatient CPT - 4: 43831 Reason for Study:Aortic valve insufficiency, etiology of cardiac valve disease unspecified Procedures: Study performed at [place], [place] and interpreted by [facility]. 2D, M-mode, Doppler, Color Flow ++++++++++++++++++++++++++++++++++++ SUMMARY: ++++++++++++++++++++++++++++++++++++ The left ventricular size is normal. Left ventricular function is normal. The ejection fraction is >55%. Diastolic filling is normal for age. Wall motion appears normal in all segments. Estimated right atrial pressure of 8 mmHg. Inferior vena cava is mild to moderately enlarged. Inferior vena cava shows <50% collapse with respiration consistent with elevated right atrial pressure. No evidence of aortic valve stenosis. Moderate aortic regurgitation. Mild calcification of aortic valve leaflets. Trace mitral regurgitation. Mitral valve calcification with good leaflet pliability. Mild tricuspid regurgitation. Right ventricular systolic pressure is 43 mmHg. Normal aortic root. ++++++++++++++++++++++++++++++++++++ FINDINGS: ++++++++++++++++++++++++++++++++++++ LV: The left ventricular size is normal. Left ventricular function is normal. The ejection fraction is >55%. Diastolic filling is normal for age. WM: Wall motion appears normal in all segments. RV: The right ventricular size is normal. Right ventricular systolic function is normal. Right ventricular systolic pressure is 43 mmHg. LA: Left atrial size is normal. RA: The right atrial size is normal. COURTNEY: No evidence of pericardial effusion. AO: Normal aortic root. The sinus of Valsalva measures 3.4cm. The proximal ascending aorta measures 3.4cm. PA: Estimated right atrial pressure of 8 mmHg. SVn: Inferior vena cava is mild to moderately enlarged. Inferior vena cava shows <50% collapse with respiration consistent with elevated right atrial pressure. AV: The aortic valve is trileaflet. No evidence of aortic valve stenosis. Moderate aortic regurgitation. Mild calcification of aortic valve leaflets. MV: Trace mitral regurgitation. No evidence of mitral valve stenosis. Mild calcification of mitral valve leaflets. Mitral valve calcification with good leaflet pliability. PV: The pulmonic valve is normal There is trace pulmonic regurgitation TV: Structurally normal tricuspid valve. Mild tricuspid regurgitation. <Electronic Signature> 11/17/2024 01:14 PM Devin Ríos M.D. Procedure Note Devin Ríos MD - 11/17/2024 LIT CANO Pat.Name: Katrin Velazquez [facility].ID: [id number] .Date: 11/17/2024 Refer.MD: Rachael, [facility] Radiology Exam Time: 9:57:00 AM Study Type:OUTREACH Height: 60 in Weight: 120 lb BSA: 1.5 m2 Age: 8 1935,89Y Sex: F Sonogrphr: Dolores Woody. Stat.:Outpatient CPT - 4: 45332 Reason for Study:Aortic valve insufficiency, etiology of cardiac valve disease unspecified Procedures: Study performed at [place], [place] and interpreted by [facility]. 2D, M-mode, Doppler, Color Flow ++++++++++++++++++++++++++++++++++++ SUMMARY: ++++++++++++++++++++++++++++++++++++ The left ventricular size is normal. Left ventricular function is normal. The ejection fraction is >55%. Diastolic filling is normal for age. Wall motion appears normal in all segments. Estimated right atrial pressure of 8 mmHg. Inferior vena cava is mild to moderately enlarged. Inferior vena cava shows <50% collapse with respiration consistent with elevated right atrial pressure. No evidence of aortic valve stenosis. Moderate aortic regurgitation. Mild calcification of aortic valve leaflets. Trace mitral regurgitation. Mitral valve calcification with good leaflet pliability. Mild tricuspid regurgitation. Right ventricular systolic pressure is 43 mmHg. Normal aortic root. ++++++++++++++++++++++++++++++++++++ FINDINGS: ++++++++++++++++++++++++++++++++++++ LV: The left ventricular size is normal. Left ventricular function is normal. The ejection fraction is >55%. Diastolic filling is normal for age. WM: Wall motion appears normal in all segments. RV: The right ventricular size is normal. Right ventricular systolic function is normal. Right ventricular systolic pressure is 43 mmHg. LA: Left atrial size is normal. RA: The right atrial size is normal. COURTNEY: No evidence of pericardial effusion. AO: Normal aortic root. The sinus of Valsalva measures 3.4cm. The proximal ascending aorta measures 3.4cm. PA: Estimated right atrial pressure of 8 mmHg. SVn: Inferior vena cava is mild to moderately enlarged. Inferior vena cava shows <50% collapse with respiration consistent with elevated right atrial pressure. AV: The aortic valve is trileaflet. No evidence of aortic valve stenosis. Moderate aortic regurgitation. Mild calcification of aortic valve leaflets. MV: Trace mitral regurgitation. No evidence of mitral valve stenosis. Mild calcification of mitral valve leaflets. Mitral valve calcification with good leaflet pliability. PV: The pulmonic valve is normal There is trace pulmonic regurgitation TV: Structurally normal tricuspid valve. Mild tricuspid regurgitation. <Electronic Signature> 11/17/2024 01:14 PM Devin Ríos M.D. Ara Blanc [facility] ECHO Final Result * USV EMMANUELLE DUPLEX LOW EXT KENDRICK (11/06/2024 2:24 PM CDT) Anatomical Region Laterality Modality Extremity Ultrasound 11/06/2024 2:33 PM CDT Impressions 11/06/2024 2:34 PM CDT IMPRESSION: 1. No evidence of DVT. Ordered By: JESSI MCDANIEL Interpreted By: Chaparro Davis, 11/06/2024 2:33 PM Narrative 11/06/2024 2:34 PM CDT [facility] [address] [place] [address] IMAGING STUDIES: USV EMMANUELLE DUPLEX LOW EXT KENDRICK EXAM DATE/TIME: 11/06/2024 1:48 PM CLINICAL HISTORY: pain in both legs . FINDINGS: THERE IS NO EVIDENCE OF DVT WITHIN THE RIGHT AND LEFT COMMON FEMORAL VEINS OR BILATERAL PROXIMAL SAPHENOUS VEINS. THERE IS NO EVIDENCE OF DVT WITHIN THE ENTIRE COURSE OF THE RIGHT AND LEFT FEMORAL VEINS. NO EVIDENCE OF DVT WITHIN THE RIGHT AND LEFT POPLITEAL VEINS OR POSTERIOR TIBIAL VEINS. Procedure Note Jono Davis MD - 11/06/2024 [facility] [address] [place] [address] IMAGING STUDIES: USV EMMANUELLE DUPLEX LOW EXT KENDRICK EXAM DATE/TIME: 11/06/2024 1:48 PM CLINICAL HISTORY: pain in both legs . FINDINGS: THERE IS NO EVIDENCE OF DVT WITHIN THE RIGHT AND LEFT COMMON FEMORAL VEINSOR BILATERAL PROXIMAL SAPHENOUS VEINS. THERE IS NO EVIDENCE OF DVT WITHIN THE ENTIRE COURSE OF THE RIGHT AND LEFTFEMORAL VEINS. NO EVIDENCE OF DVT WITHIN THE RIGHT AND LEFT POPLITEAL VEINS OR POSTERIORTIBIAL VEINS. IMPRESSION: 1. No evidence of DVT. Ordered By: JESSI MCDANIEL Interpreted By: Chaparro Davis, 11/06/2024 2:33 PM Jessi Mcdaniel [facility] V[facility] Final Resul t * ECG (10/30/2024) us Doc Pccl Scanned SCANNING Final Result [facility] from Last 3 Months Insurance MEDICARE [facility] Advance Directives Documents on File Type Date Recorded Patient Kitman Expl anation Advance Directives and Living Will 12/02/2018 12:00 AM POWER OF VMWARE ENGINEER FO R HEALTH CARE Advance Directives and Living Will 10/14/2018 12:00 AM POWER OF [employer]WARE ENGINEER FO R HEALTH CARE Advance Directives and Living Will 02/04/2018 12:00 AM POWER OF VMWARE ENGINEER FO R HEALTH CARE Advance Directives and Living Will 02/04/2018 12:00 AM POWER OF VMWARE ENGINEER FO R HEALTH CARE Advance Directives and Living Will 05/09/2016 12:00 AM POWER OF VMWARE ENGINEER FO R HEALTH CARE Advance Directives and Living Will 05/09/2016 12:00 AM POWER OF VMWARE ENGINEER FO R HEALTH CARE Advance Directives and Living Will 01/12/2016 12:00 AM POWER OF VMWARE ENGINEER FO R HEALTH CARE Advance Directives and Living Will 01/12/2016 12:00 AM POWER OF VMWARE ENGINEER FO R HEALTH CARE Care Teams Peoplesoft Hcm Consultant Relationship Specialty Start Date End Date Savanah Howell, GREENHOUSE OR NURSERY TRANSPLANTER- [address], [address] [place] [phone] PCP - General Nurse Practitioner Family 10/13/24
--- OUTSIDE RECORDS SUMMARY | 2024-12-06 14:52 | XMS_ITS | Clinical Summary ---
Author Organization [facility] Address [address] [place] [address] Care Team Providers Care Rail Splitter Name Role Phone Unavailable Primary Care Provider Unavailabl e Source Comments [facility],non-owned Affiliates and Associated Physician Practices is amultiple site organization consisting of ambulatory clinics and hospital sitesin [place], [place], [place] and [place]. This disclosure is being madepursuant to the Care Everywhere program and may not contain all information available regarding this patient. Last updated 18.[facility] Social History Tobacco Use Types Packs/Day Years Used Date Smoking Tobacco: Never Assessed Comments Unknown Sex and Gender Information Value Date Recorded Sex Assigned at Not on file Legal Sex Female 3:41 PM CDT Gender Identity Not on file [...] VACCINE ( - 2023-2 5 season) 2024 DEPRESSION SCREENING 08/23/2024 INFLUENZA VACCINE (Season Ended) 2025 HEPATITIS B VACCINE Aged Out No longe r eligible based on patient's age to complete this topic HIB VACCINE Aged Out No longer eligi ble based on patient's age to complete this topic HPV VACCINE Aged Out No longer eligi ble based on patient's age to complete this topic MENINGOCOCCAL (Group B) VACC INE SHARED DECISION-MAKING Aged Out No longer eligibl e based on patient's age to complete this topic MENINGOCOCCAL GROUPS A/C/Y/W VACCINE Aged Out No longer eligible b ased on patient's age to complete this topic Insurance MEDICARE [facility] [place] [id number]
--- OUTSIDE RECORDS SUMMARY | 2024-12-06 14:52 | XMS_ITS | Encounter Summary ---
Author Organization [facility] Address [address] [place] [address] Care Team Providers Care Production Honing Machine Operator Name Role Phone Unavailable Primary Care Provider Unavailabl e Encounter Details Date Type Department Care Team (Late st Contact Info) Description 04/11/2024 Lab Requisition [facility] - DermPath Lab [address] [facility], [facility] [place] [address] Jordy Mitchell MD [facility] DERMATOLOGY [address] [place] [phone] Basal cell carcinoma of skin of [...] AM CDT) Case Report Dermatopathology Report Case: [id number] Authorizing Provider: Jordy Mitchell MD Collected: 04/11/2024 03:33 AM Ordering Location: [facility] Physician [facility] - Received: 04/12/2024 11:09 AM DermPath Lab Pathologist: Elsa Moore MD Specimen: Skin, right elbow 1:57 PM CDT DERMATOPATHOLOGY LABORATORY Final Diagnosis Specimen A. SKIN, right elbow: BASAL CELL CARCINOMA (C44.612) NOT PRESENT AT SAMPLED MARGIN DERMAL SCAR (L90.5) 1:57 PM T DERMATOPATHOLOGY LABORATORY Clinical History BCC Please check margins/prior biopsy report 1:57 PM CDT DERMATOPATHOLOGY LABORATORY Gross Description Specimen A: Received is one formalin filled container labeled with the patient's name and designated right elbow. The specimen consists of a [id number] mm piece of skin. The margin is inked green. The specimen is bisected lengthwise and submitted in 1 cassette. Jar 0. 1:57 PM CDT DERMATOPATHOLOGY LABORATORY Microscopic Description [...] perpendicular to the skin surface. 1:57 PM CDT DERMATOPATHOLOGY LABORATORY Disclaimer An external and internal positive and negative controls are appropriate for the histochemical, immunohistochemical and immunofluorescence stain(s) in this case (if any), except where stated explicitly. The performance characteristics of the stain(s) cited in this report were developed and its performance characteristic determined by the Dermatopathology Laboratory at [facility], directed by Dr. Faheem Hooks. These tests need not be, and therefore are not, approved by the [place] Food and Drug Administration. The tests are used for clinical purposes. Billing Codes Specimen Charges Stain Charges 36739 1 1:57 PM CDT DERMATOPATHOLOGY LABORATORY Embedded Images 1:57 PM CDT DERMATOPATHOLOGY LABORATORY Pathology/Cytolo gy TISSUE SPECIMEN FROM SKIN / Unknown 04/11/2024 3:33 AM CDT 04/12/2024 11:09 AM CDT us Jordy Mitchell MD LAB - PATHOLOGY/CYTOLOGY CYNTHIA ARCEO Final Result DERMATOPATHOLOGY LABORATORY [facility] - Department of Dermatology [address], [address] [phone] documented in this encounter Visit Diagnoses Diagnosis Basal cell carcinoma of skin of right upper limb, including shoulder Basal cell carcinoma of skin of upper limb, including shoulder documented in this encounter
[2024-12-06 15:12] LABS: Prothrombin Time 13.5 Seconds (11.1-14.7)
[2024-12-06 15:13] LABS: Partial Thromboplastin Time 25.3 Seconds (22.3-36.8)
[2024-12-06 15:14] LABS: Albumin Level 4.3 g/dL (3.5-5.1)
[2024-12-06 15:32] LABS: Urine Cotinine NEGATIVE
[2024-12-06 16:13] LABS: MRSA (PCR) NOT DETECTED (NOT DETECTE)
== END 2024-12-06 13:37 | disposition home or self-care (01) ==
LOC: ANHSURGERY 13:42
PROVIDERS: PCP Nurse Practitioner Family; Visit Provider Orthopaedic Surgery
DX: M17.12 Unilateral primary osteoarthritis, left knee (principal); Z01.818 Encounter for other preprocedural examination
CPT/HCPCS: 80307; 82040; 85610; 85730; 86850; 86900; 86901; 87641

== ENCOUNTER 2024-12-19 00:49 | Day surgery (SDC) | payer MEDICARE, OTHER, SELFPAY ==
[2024-12-06 13:48] VITALS: BMI 23.1
--- NOTE | 2024-12-06 14:16 | PC.NURSE ---
Report to the Outpatient Waiting Room, entrance under the green pavilion located off [address], at time _6 am on date __12/19/24 . Planned Procedure Time: _7:30 am .? Time changes happen often and if your time is changed the preop area will call you the afternoon before. - You and your visitor will be asked to self-screen and do not enter if you have any COVID symptoms. Please call surgeon if you need to reschedule. - A mask is optional within the hospital at this time. Patients may have clear liquids (water, carbonated beverages, clear teas, apple juice) until 3 hours prior to surgery ( 4:30 am) with a maximum of 20 ounces. - No food from midnight until time of surgery and no smoking, or chewing tobacco (or any form of nicotine). No chewing gum, candy or mints. - Take only the following medications with a SIP of water on the morning of surgery: ____NONE DO NOT STOP ANY OF YOUR OTHER PRESCRIPTION MEDICATIONS PRIOR TO SURGERY EXCEPT THE FOLLOWING Hold all vitamins and supplements for 3 days per anesthesiologist. LAST DOSE 12/15/24 Medications to discontinue per physician ASPIRIN PER DR BALDERRAMA Date to take last dose Please no make-up, nail indonesian, hairspray, perfume, deodorant, or body powder the day of surgery.? No jewelry (including any body piercings) or valuables the day of surgery, leave them at home.? Please take a shower or bath the night before, or the morning of, surgery with an antibacterial soap.? Wear comfortable, loose fitting clothing.? Children are encouraged to wear pajamas. - Jewelry must be removed prior to entering the operating room.? Rings and piercings that are not removed may be cut off. - The hospital will not accept responsibility for valuables.? - Please leave all valuables, including medications, at home the day of surgery. If you are going home after surgery, a licensed regional intermodal truck driver must drive you home.? - NO public transportation without another adult if you receive anesthesia. - We recommend that an adult stay with you for 24 hours following discharge. - We also recommend that you do not drive, make important decision, drink alcoholic beverages, or take any drugs that were not prescribed by your health care provider for at least 24 hours after your discharge time. For Pediatric surgeries, we recommend two adults accompany the child home. Follow any additional instructions given to you from your surgeon. VERBAL AND WRITTEN instructions given to _PATIENT AND DAUGHTER JUAN CARLOS and asked if any additional questions and then verbalized understanding. Patient advised to call surgeon office or pre surgery nurse liaison [phone] if any additional questions.
[2024-12-06 14:41] VITALS: BP 142/57; PULSE 75; RESP 18; TEMP 36.6; O2SAT 99
[2024-12-19] VITALS (16 sets, daily range): BP systolic 115–180; BP diastolic 47–79; PULSE 70–84; RESP 10–20; TEMP 36.2–37.1; O2SAT 91–100; BMI 3248.4
--- NOTE | ~2024-12-19 | XR_ITS ---
[id number] Ordering provider: Lane Mehta MD History: . POST OP LEFT TKA . Comparison: None. FINDINGS: BONES: No acute fracture or dislocation. JOINT SPACES: Total knee arthroplasty. SOFT TISSUES: Postoperative changes in the soft tissues. IMPRESSION: No acute osseous abnormality left knee. Total knee arthroplasty. Reviewed, dictated and finalized at location A.
--- OUTSIDE RECORDS SUMMARY | 2024-12-19 00:53 | XMS_ITS | Continuity of Care Document ---
Author Organization [facility] Address [address] [place] [address] utive [address] [place] [address] Phone Care Team Providers Care Bag Bundler Name Role Phone Uriel Wu Unavailable Unavailable Procedures Procedure Date Office/outpatient Visit, Est Visual Field Examination-Professional Au Visual Field Examination(s) Office/outpatient Visit, Est No Charge Glasses Check Eye Exam & Treatment No Script Refraction Eye Exam & Treatment Refraction BF Plastic Sphcyl [place] To +/-4d .12-2d Frames Deluxe Tax - Medical Eye Exam & Treatment Refraction Advance Directives Directive Yes / No Effective Date File Name No Information Encounters Encounter Description Practice Location Reason(s) For Visit Diagnoses Date Provider Providers Copied on Encounter Office/outpat ient Visit, [facility], [address] [place] [address] [address], [place], [place], [id number], [place] tel:[phone] [facility] No Information 8201 0 Bryce Trevino. [address] , [address], [place], [address], [place]. tel:[phone] [facility], [address], [place], [place], [id number], [place] tel:[phone] [facility] No Information 6201 0 Doisy Edstephen. [address] , [address], [place], [place], [facility], [place]. tel:[phone] Referring Provider: Uriel Brunson, [address], [place], [facility]. tel:[phone] [facility], [address], [place], [place], [address], [place] tel:[phone] [facility] No Information 4-201 0 Doisy Edstephen. [address] , [address], [place], [facility], [place]. tel:[phone] Referring Provider: [facility]riel [facility]son, [facility] [address], [place], [facility]. tel:[phone] Office/outpat ient Visit, [facility], [address], [place], [place], [address], [place] tel:[phone] [facility] No Information 1-201 0 Doisy Edstephen. [facility] , [address], [place], [facility], [place]. tel:[phone] [facility], [address], [place], [place], [address], [place] tel:[phone] [facility] No Information 0 7-200 9 Mo OD Cyrus. [address] , [address], [place], [facility], [place]. tel:[phone] [facility], [address], [place], [place], [address], [place] tel:[phone] [facility] No Information 3-200 9 Doisy Edstephen. [address] [facility] [address], [address], [place], [facility], [place]. tel:[phone] [facility], [address], [place], [place], [address], [place] tel:[phone] [facility] No Information 7200 8 Bryce Trevino. [facility] , [address], [place], [facility], . tel:[phone] [facility], [address], [place], [place], [address], [place] tel:[phone] [facility] No Information 5200 7 [employer] . [address] [facility], [address], [place], [place], [address], [place]. tel:[phone] Referring Provider: Uriel Brunson, [address] [place] [address] [address], [place], [facility]. tel:[phone] sulting Provider: Kia Greer, [address] [place] [address], [facility]. tel:[phone] [facility], [address], [place], [place], [address], [place] tel:[phone] [facility] No Information 0200 7 Bryce Trevino. [address] [place] [address] [address], [address], [place], [facility], [place]. tel:[phone] Family History Family Member Type Diagnosis Age At Onset No Information Payers Payer name Insurance type Covered alliance party ID Authorraymonda debbie(s) Medicare [facility] [id number] Social History Type Description Quantity Date Captured [...]
--- OUTSIDE RECORDS SUMMARY | 2024-12-19 00:53 | XMS_ITS | Clinical Summary ---
Author Organization [facility] Address [address] [place] [address] Care Team Providers Care Sludge Filtration Attendant Name Role Phone Savanah Howell [facility] Primary Care Provider + Allergies No known active allergies Medications aspirin EC (ECOTRIN) 81 MG tablet Take 1 tablet (81 mg total) by mouth daily. Active vitamin C (ASCORBIC ACID) 1000 MG tablet Take 1 tablet (1,000 mg total) by mouth daily. Active Cholecalciferol (VITAMIN D3) 250 MCG (92491 UT) Cap Take 2,000 Int'l Units/day by mouth daily. Active Calcium Carbonate-Vitam in D (CALTRATE 600+D OR) Take by mouth daily. Active Multiple Vitamins-Minera ls (ICAPS) Tab Take 1 tablet by mouth 2 (two) times a day. Active lactobacillus (FLORANEX) tablet Take 1 tablet by mouth daily. Active Polyvinyl Alcohol-Povidon e (REFRESH OP) Activ e lisinopril (PRINIVIL) 5 MG tabletIndicatio ns:Essential hypertension, benign Take 1 tablet (5 mg total) by mouth daily. 90 tablet 5 Active lisinopril (PRINIVIL) 5 MG tabletIndicatio ns:Essential hypertension, benign TAKE 1 TABLET(5 MG) BY MOUTH DAILY 90 tablet 12/19/19 25 Discontinu ed(Reorder ) Active Problems Problem Noted Date Diagnosed Date Knee pain, left 06/19/2024 Right-sided low back pain with sciatica 05/30/20 Primary osteoarthritis of left knee 06/16/2023 Osteopenia of multiple sites 06/16/2023 Prediabetes 06/16/2023 History of DVT (deep vein thrombosis) 06/16/2023 Overview (06/16/2023): Right leg 2020 Essential hypertension, benign 12/07/2022 Aortic valve regurgitation 12/03/2022 Encounters Date Type Department Care Team Description 12/08/2024 8:40 AM CDT Office Visit [facility] [address] [phone] Art Vieyra PA Sore Throat (Pt c/o sore throat and fever since yesterday) 12/08/2024 Travel 11/29/2024 1:00 PM CDT Office Visit [facility] Internal [address] [phone] Savanah Howell FNP-BRINDA Surgical Clearance (surgical clearance left knee 12/19/24) 11/29/2024 Travel 11/20/2024 11:30 AM CDT Office Visit [facility] [address] [phone] Ara Blanc FNP Surgical Clearance ([facility]-TBD); Aortic Valve Stenosis 11/20/2024 Travel 11/17/2024 1:40 PM CDT Office Visit [facility] Internal [address] [phone] Savanah Howell FNP-BC Follow Up (6 mo f/u ) 11/17/2024 9:51 AM CDT - 11/17/2024 11:59 PM CDT Hospital Encounter [facility] [address] [place] [phone] Ara Blanc FNP Discharge Disposition: Home or Self Care (Routine Discharge) 11/17/2024 Travel 11/06/2024 1:36 PM CDT - 11/06/2024 11:59 PM CDT Hospital Encounter [facility] [address] [place] [address] Jessi Dillard NP Discharge Disposition: Home or Self Care (Routine Discharge) 11/06/2024 Travel 11/01/2024 Telephone [facility] [place], [place] [phone] Saurav Rock MD Surgical Clearance 10/30/2024 Scan [facility] [place] [address] [place] [address] Scanned, Doc Pccl from Last 3 Months [...] (Adacel) 05/09/2016 Tdap (Generic) 05/08/2016,07/24/2004 Zoster (Zostavax) 63796 Unt/0.65Ml 08/23/2010 Family History Medical History Relation Comments Heart Disease Brother 1 Heart Disease Brother 2 Defects Daughter 1 One kidney did n ot develop Arthritis Daughter 2 Asthma Daughter 3 Diabetes Daughter 3 Cancer Father Leukemia Leukemia Father Arthritis Mother CHF Mother Heart Disease Mother Congestive heart failure Hypertension Mother Arthritis Sister CHF Sister Heart Disease Sister Relation Status Comments Brother 1 Alive Brother 2 Alive Daughter 1 Alive Daughter 2 Alive Daughter 3 Alive Father Maternal Grandfather Maternal Grandmother Mother Paternal Grandfather Paternal Grandmother Sister Social History Tobacco Use Types Packs/Day Years Used Date Smoking Tobacco: Never Smokeless Tobacco: Never Tobacco Cessation:Counseling Given: No Alcohol Use Standard Drinks/Week Comments Not Currently 0 (1 standard drink = 0.6 oz pur e alcohol) PHQ-2 Answer Date Recorded Patient Health Questionnaire-2 Score 0 11/17/2024 Comments No Sex and Gender Information Value Date Recorded Sex Assigned at Female 11/17/2024 1:40 PM CDT Legal Sex Female 5:20 PM CDT Gender Identity Female 11/17/2024 1:40 PM CDT Sexual Orientation Not on file Last Filed Vital Signs Vital Sign Reading Time Taken Comments Blood Pressure 138/78 12/08/2024 8:29 AM CDT Pulse 92 12/08/2024 8:29 AM CDT Temperature 36.7 C (98 F) 12/08/2024 8:29 AM CDT Respiratory Rate 16 12/08/2024 8:29 AM CDT Oxygen Saturation 98% 12/08/2024 8:29 AM CDT Inhaled Oxygen Concentration - - Weight 53.5 kg (118 lb) 12/08/2024 8:29 AM CDT Height 154.9 cm (5' 1 ) 12/08/2024 8:29 AM CDT Body Mass Index 22.3 12/08/2024 8:29 AM CDT Plan of Treatment Upcoming Encounters Date Type Department Care Team (Late st Contact Info) Description 05/21/2025 10:15 AM CDT [facility] [address] [place] [address] Saurav Rock MD [address] [address] 05/21/2025 1:40 PM CDT Office Visit [facility] Medicine [place] [phone] [place] [address] Savanah Howell, [facility] [address], [address] [place], [place] [phone] Health Maintenance Due Date Last Done Comments [...] or 60+ Years Completed 06/03/2023 PHQ-2 (Physician [place]) Completed 11/17/2024 Meningococcal B Vaccine Aged Out No l onger eligible based on patient's age to complete this topic Meningococcal Vaccine Aged Out No emelia monica eligible based on patient's age to complete this topic RSV Immunizations Under 20 Months Aged Out No longer eligible based on patient's age to complete this topic Procedures Procedure Name Priority Date/Time Associated Diagnosis Comments STREP A RAPID Routine 12/08/2024 Sore throat CORONAVIRUS (COVID-19) INFLUENZA A & B ANTIGEN IA PANEL Routine 12/08/2024 Suspected COVID-19 virus infection USE ECHOCARDIOGRAM Routine 11/17/2024 10 :34 AM CDT Aortic valve insufficiency, etiology of cardiac valve disease unspecified USV EMMANUELLE DUPLEX LOW EXT KENDRICK Routine 11/06/2024 2:24 PM CDT Pain in left lower leg Pain in right lower leg ECG GENERIC (SCAN ORDER) Routine 10/30/2024 from Last 3 Months Results * (ABNORMAL) CORONAVIRUS (COVID-19) INFLUENZA A & B ANTIGEN IA PANEL (12/08/2024) CORONAVIRUS ANTIGEN IA POSITIVE(A) NEGATIVE [id number] A NE[facility] NEGATIVE [id number], [place] INFLUENZA B NEGATIVE NEGATIVE [id number], [place] Internal Control: VALID VALID [id number], [place] NASAL STRUCTURE / Unknown 12/08/2024 Art [facility]CGILL MICROBIOLOGY - GENERAL ORDERAB LES Final Result Performing Organization Address City/[facility]/ZIP Co de Phone Number [id number], [place] [address] [place] [address], [place] [phone] * STREP A RAPID (12/08/2024) RAPID STREP TEST NEGATIVE NEGATIVE [id number], [place] Internal Control: VALID VALID [id number], [place] STRUCTURE OF ANTERIOR PORTION OF NECK / Unknown 12/08/2024 Art MCGILL MICROBIOLOGY - GENERAL ORDERAB LES Final Result Performing Organization Address City/[facility]/ZIP Co de Phone Number [id number], [place] [address] [place] [address], [place] [phone] * USE ECHOCARDIOGRAM (11/17/2024 10:34 AM CDT) Anatomical Region Laterality Modality Cardiac Ultrasound 11/17/2024 9:57 AM CDT Narrative 11/17/2024 1:14 PM CDT LIT CANO Pat.Name: Marcus Sangeeta Pat.ID: [id number] St.Date: 11/17/2024 Refer.MD: Sherron, [facility] Radiology Exam Time: 9:57:00 AM Study Type:OUTREACH Height: 60 in Weight: 120 lb BSA: 1.5 m2 Age: 8 1935,89Y Sex: F Sonogrphr: Dolores Woody. Stat.:Outpatient CPT - 4: 80086 Reason for Study:Aortic valve insufficiency, etiology of cardiac valve disease unspecified Procedures: Study performed at [place], [place] and interpreted by [facility]. 2D, M-mode, Doppler, Color Flow [...] - 11/17/2024 LIT CANO Pat.Name: Katrin Velazquez Pat.ID: [id number] .Date: 11/17/2024 Refer.MD: Sherron, [facility] Radiology Exam Time: 9:57:00 AM Study Type:OUTREACH Height: 60 in Weight: 120 lb BSA: 1.5 m2 Age: 8 1935,89Y Sex: F Sonogrphr: Dolores Pat. Stat.:Outpatient CPT - 4: 34678 Reason for Study:Aortic valve insufficiency, etiology of cardiac valve disease unspecified Procedures: Study performed at [place], [place] and interpreted by [facility]. 2D, M-mode, Doppler, Color Flow [...] Signature> 11/17/2024 01:14 PM Devin Ríos M.D. us Ara Blanc LICENSED PHYSICAL THERAPY ASSISTANT ECHO Final Result * USV EMMANUELLE DUPLEX LOW EXT KENDRICK (11/06/2024 2:24 PM CDT) Anatomical Region Laterality Modality Extremity Ultrasound 11/06/2024 2:33 PM CDT Impressions 11/06/2024 2:34 PM CDT IMPRESSION: 1. No evidence of DVT. Ordered By: JESSI ROBERT Interpreted By: Chaparro Davis, 11/06/2024 2:33 PM Narrative 11/06/2024 2:34 PM CDT [facility] [address] [place] [phone] IMAGING STUDIES: USV EMMANUELLE DUPLEX LOW EXT [...] Procedure Note Jono Davis MD - 11/06/2024 [facility] [address] [place] [address] IMAGING STUDIES: USV EMMANUELLE DUPLEX LOW EXT [...] No evidence of DVT. Ordered By: JESSI ROBERT Interpreted By: Chaparro Davis, 11/06/2024 2:33 PM Jessi Robert US VASC Final Resul t * ECG (10/30/2024) us Doc Pccl Scanned SCANNING Final Result [facility] ONBASE from Last 3 Months Additional Health Concerns Infection Onset Date Last Indicated COVID-19 Confirmed 12/08/2024 12/08/2024 Insurance MEDICARE [facility] Advance Directives Documents on File Type Date Recorded Patient Student Education Specialist Expl anation Advance Directives and Living Will 12/02/2018 12:00 AM POWER OF TRAVEL MANAGER FO R HEALTH CARE Advance Directives and Living Will 10/14/2018 12:00 AM POWER OF TRAVEL MANAGER FO R HEALTH CARE Advance Directives and Living Will 02/04/2018 12:00 AM POWER OF TRAVEL MANAGER FO R HEALTH CARE Advance Directives and Living Will 02/04/2018 12:00 AM POWER OF TRAVEL MANAGER FO R HEALTH CARE Advance Directives and Living Will 05/09/2016 12:00 AM POWER OF TRAVEL MANAGER FO R HEALTH CARE Advance Directives and Living Will 05/09/2016 12:00 AM POWER OF TRAVEL MANAGER FO R HEALTH CARE Advance Directives and Living Will 01/12/2016 12:00 AM POWER OF TRAVEL MANAGER FO R HEALTH CARE Advance Directives and Living Will 01/12/2016 12:00 AM POWER OF TRAVEL MANAGER FO R HEALTH CARE Care Teams Sludge Filtration Attendant Relationship Specialty Start Date End Date Savanah Howell, LICENSED PHYSICAL THERAPY ASSISTANT- [address], [address] [place] [address] PCP - General Nurse Practitioner Family 10/13/24
--- OUTSIDE RECORDS SUMMARY | 2024-12-19 00:53 | XMS_ITS | Clinical Summary ---
Author Organization [facility] [address] Address [address] [place] [address] Care Team Providers Care Merchant Banker Name Role Phone Aliya Asif MD Primary Care Provider Allergies No known active allergies Social History Tobacco Use Types Packs/Day Years Used Date Smoking Tobacco: Never Assessed Personal Safety Answer Date Recorded Getting School Help Needed Not on file 11/04 Comments Unknown Sex and Gender Information Value Date Recorded Sex Assigned at Not on file Legal Sex Female 3:04 AM EARTH SCIENCE FACULTY MEMBER Gender Identity Not on file Sexual Orientation Not on file Plan of Treatment Not on file Insurance MEDICARE [facility] Care Teams Merchant Banker Relationship Specialty Start Date End Date Aliya Asif MD PCP - General Family Practice 12/02/18
--- OUTSIDE RECORDS SUMMARY | 2024-12-19 00:53 | XMS_ITS | Referral Summary ---
Author Organization [facility] [address] Address [address] [place] [address] Care Team Providers Care Trust Vault Clerk Name Role Phone Aliya Asif MD Primary Care Provider Allergies No known active allergies Social History Tobacco Use Types Packs/Day Years Used Date Smoking Tobacco: Never Assessed Personal Safety Answer Date Recorded Getting School Help Needed Not on file 11/04 Comments Unknown Sex and Gender Information Value Date Recorded Sex Assigned at Not on file Legal Sex Female 3:04 AM SAMPLE PROCESSOR Gender Identity Not on file Sexual Orientation Not on file Plan of Treatment Not on file Insurance MEDICARE [facility] Care Teams Trust Vault Clerk Relationship Specialty Start Date End Date Aliya Asif MD PCP - General Family Practice 12/02/18
--- OUTSIDE RECORDS SUMMARY | 2024-12-19 00:53 | XMS_ITS | Clinical Summary ---
Author Organization [facility] Address [address] [facility] [place] [address] Care Team Providers Care Used Car Manager Name Role Phone Unavailable Primary Care Provider Unavailabl e Source Comments [facility],non-owned Affiliates and Associated Physician Practices is amultiple site organization consisting of ambulatory clinics and hospital sitesin [place], [place], [place] and [place]. This disclosure is being madepursuant to the Care Everywhere program and may not contain all information available regarding this patient. Last updated 18.[facility] Social History Tobacco Use Types Packs/Day Years [...] age to complete this topic Insurance MEDICARE [facility] [place] [id number]
--- OUTSIDE RECORDS SUMMARY | 2024-12-19 00:53 | XMS_ITS | Encounter Summary ---
Author Organization [facility] Address [address] [place] [address] Care Team Providers Care Casualty Underwriter Name Role Phone Unavailable Primary Care Provider Unavailabl e Encounter Details Date Type Department Care Team (Late st Contact Info) Description 04/11/2024 Lab Requisition [facility] - DermPath Lab [address] [facility], [facility] [place] [address] [facility] DERMATOLOGY [address] [place] [phone] Basal cell carcinoma of skin of [...] AM CDT) Case Report Dermatopathology Report Case: [id number] Authorizing Provider: Jordy Mitchell MD Collected: 04/11/2024 03:33 AM Ordering Location: [facility] Physician [facility] - Received: 04/12/2024 11:09 AM DermPath [...] right elbow. The specimen consists of a [id number] mm piece of skin. The margin is [...] characteristic determined by the Dermatopathology Laboratory at [facility], directed by Dr. Faheem Hooks. These tests need not be, and therefore are not, approved by the [place] Food and Drug Administration. The tests are used for clinical purposes. Billing Codes Specimen Charges Stain Charges 42595 1 1:57 PM CDT DERMATOPATHOLOGY LABORATORY Embedded Images 1:57 PM CDT DERMATOPATHOLOGY LABORATORY Pathology/Cytolo gy TISSUE SPECIMEN FROM SKIN / Unknown 04/11/2024 3:33 AM CDT 04/12/2024 11:09 AM CDT us Jordy Mitchell MD LAB - PATHOLOGY/CYTOLOGY CYNTHIA ARCEO Final Result DERMATOPATHOLOGY LABORATORY [facility] - Department of Dermatology [address], [address] [phone] documented in this encounter Visit Diagnoses Diagnosis Basal cell carcinoma of skin of right upper limb, including shoulder Basal cell carcinoma of skin of upper limb, including shoulder documented in this encounter
--- NOTE | 2024-12-19 07:04 | P.PNAN_ITS ---
Anes - Initial Pre Proc Eval Procedure: Operation Date: 12/19/24 07:30 Proposed Procedures p Left Total Knee Arthroplasty - Lane Mehta MD Date/Time: 12/19/24 07:04 Surgeon: Lane Mehta MD Pre Op Diagnosis: left knee OA Patient Data Age: 89 Gender: F Height: 1.52 m Weight: 53.6 kg Last Vital Signs Temp 97.8 F 12/06/24 14:41 Pulse 75 12/06/24 14:41 Resp 18 12/06/24 14:41 BP 142/57 H 12/06/24 14:41 Pulse Ox 99 12/06/24 14:41 O2 Del Method Room Air 12/06/24 14:41 Allergies Allergy/AdvReac Type Severity Reaction Status Date / Time No Known Allergies Allergy Verified 12/07/24 08:43 Home Medications ?Medication ?Instructions ?Recorded ?Confirmed ?Type ascorbic acid (vitamin C) 1,000 mg 1 gm PO DAILY 07/27/19 12/07/24 History tablet (Vitamin C) calcium 600 mg (as carbonate)-vit 1 tablet PO DAILY 07/27/19 12/07/24 History D3 10 mcg (400 unit)-minerals tablet rcjriegoqmzs-irqklte-bzars acid 1 tablet PO DAILY 07/27/19 12/07/24 History 400 mcg-lutein 250 mcg chewable tablet (Centrum Silver) Lactobacillus 40-Bifidobact 100 cap PO DAILY 07/28/19 12/07/24 History 3-S.thermophilus 100 billion cell capsule (Probiotic) aspirin 81 mg tablet,delayed 81 mg PO DAILY 07/11/21 12/07/24 History release (Adult Aspirin Regimen) cholecalciferol (vitamin D3) 50 50 mcg PO DAILY #90 caps 07/11/21 12/07/24 Rx mcg (2,000 unit) capsule vitamin B complex (B 1 tablet PO DAILY 07/11/21 12/07/24 History Complex-Vitamin B12 tablet) vitamins A,C,X-gahw-dzktkk 2,148 1 tablet PO BID 07/11/21 12/07/24 History mcg-113 mg-45 mg-17.4 mg tablet (PreserVision AREDS) lisinopril 5 mg tablet 5 mg PO DAILY 02/08/23 12/07/24 History acetaminophen 500 mg tablet 500 mg PO Q6H PRN pain 12/06/24 12/07/24 History (Acetaminophen Extra Strength) fluticasone propionate 50 1 spray intranasal DAILY 12/06/24 12/07/24 History mcg/actuation nasal spray,suspension (Allergy Relief (fluticasone)) Patient hx anesthesia problems: none Family hx anesthesia problems: none Results Review: All pre-operative results and documents have been reviewed as part of the pre- operative evaluation. COUNTS INCLUDE 234 BEDS AT THE [facility] Past Medical History Medical History Other fatigue Instability of left knee joint Left knee DJD Osteopenia Prediabetes Right leg DVT (~11/2019) Aortic regurgitation Murmur found incidentally, with echocardiogram in November 2018 showing moderate to severe aortic valve regurgitation. Degenerative joint disease of knee Right knee pain Surgical History Surgical History S/P total knee arthroplasty (~11/2019) Status post cataract extraction Status post appendectomy Status post left rotator cuff repair Status post tubal ligation Status post tonsillectomy Family History Family History Mother Family history of cardiovascular disease Hypertension Family history of arthritis Sibling Family history of cardiovascular disease Family history of arthritis Father Family history of malignant neoplasm Family history of arthritis Social History Social History Social History: The patient lives in her own home in [place]. She is . she designates her daughter, Ivonne Greenberg, as her surrogate decision maker and she wishes to be a full code. Caffeine-decaf tea Smoking status: Never smoker Additional smoking assessment comments: DENIES ANY FORM OF TOBACCO USE Alcohol intake: never Substance use: never Lack of Transportation: No Lack of Food: Never True Current Housing: I Have Housing Concerned About Future Housing: No Difficulty Paying Gas/Electric Bills: No Difficulty Paying for Meds: No Currently Unemployed: No Education: High School Diploma/GED Difficulty w/ Childcare or Family Care: No Living arrangements: alone Gender identity (if verbalized by the patient): Female Spiritual care concerns: No Agree to blood products: Yes Anes - Eval Final PreProcedure Day of Procedure 12/19/24 07:04 Patient weight: normal Lungs: normal air movement Airway: Mallampati scale class II Neurological: alert and oriented Last oral intake: >/= 8 hours ASA classification: II Emergent: no Anesthetic plan: proceed Anesthesia type and monitoring: general LMA and standard monitoring Results Review: All pre-operative results and documents have been reviewed as part of the pre- operative evaluation. HTN. Pt had stress test 2020 which was neg. Cleared by cardiology for surgery today. Informed Consent: The patient's anesthetic plan and its attendant risks and benefits were discussed with the patient/family/POA. Questions were solicited and answers provided to the satisfaction of the patient/family/POA.
[2024-12-19] MEDS: LACTATED RINGERS 1,000 ML 30 ML IV CONT ×2 (07:22→10:19)
[2024-12-19] MEDS: TRANEXAMIC ACID 1,000MG/ISO100 1,000 MG/100 ML BAG 200 MG IVPB (07:23)
[2024-12-19] MEDS: ACETAMINOPHEN 500 MG TABLET 1000 MG PO (07:23)
--- NOTE | 2024-12-19 07:23 | WPDHPUPDATE1 ---
History and Physical Update Update Date/Time: 12/19/24 07:23 History and Physical has been reviewed, including an updated exam of the patient. There are NO changes in the patient's condition. Risks, benefits, and alternatives have been discussed and questions answered. Patient agrees to proceed with procedure.
--- NOTE | 2024-12-19 07:27 | WPDHPUPDATE1 ---
History and Physical Update Update Date/Time: 12/19/24 07:27 History and Physical has been reviewed, including an updated exam of the patient. There are NO changes in the patient's condition. Risks, benefits, and alternatives have been discussed and questions answered. Patient agrees to proceed with procedure.
[2024-12-19] MEDS: ceFAZolin 2 GM/D5W 50 ML 2 GM/50 ML BAG IVPB ×3 (07:36→23:13)
--- NOTE | 2024-12-19 07:38 | WPDANESPNB ---
Anes - Peripheral Nerve Block Date/Time: 12/19/24 07:38 I have discussed with the patient/family/POA the placement of a peripheral nerve block for post-operative pain management, including associated risks, benefits, complications, and side effects. Alternative methods of post-operative analgesia were detailed. Questions were solicited and answers provided to the satisfaction of the patient/family/POA. Time-Out: A pre-procedural Time-Out was completed immediately before starting the procedure and confirmed: Patient Identification, Site, Procedure, Patient Position and the Availability of Requisite Equipment. Clinical Indications: Acute post-operative pain management requested by the operative surgeon. Nerve Block Insertion Note Anes-nerve block: adductor canal left Patient position: supine Skin prep: chlorhexidine Needle: 22 gauge, stimulating, insulated echogenic needle. Needle length: 50 mm Technique: ultrasound Injectate: other (Bupiv 0.5%, 10 mls. ) Observations: tolerated well Complications: none Procedure start time:: 725 Procedure end time:: 3
[2024-12-19] MEDS: SODIUM CHLORIDE 0.9% IV 37.7 ML, MORPHINE SULFATE INJ (*CRX) 2 MG, ROPivacaine HCL 1% 2... INFILTRATE (07:59)
[2024-12-19] MEDS: GENTAMICIN BONE CEMENT REFOBACIN 1 EACH TOPICAL (08:33)
[2024-12-19] MEDS: TRANEXAMIC ACID 1,000 MG/10 ML AMPUL 1000 MG IV PUSH (09:01)
--- NOTE | 2024-12-19 09:32 | W.PM.PROC2 ---
Procedure Note - Detailed Date of Procedure 12/19/24 Pre-op Diagnosis left knee OA Post-op Diagnosis Same Procedure Performed L TKA Surgeon Lane Mehta MD Anesthesia General Description of Procedure THE LEFT KNEE WAS PREPPED AND DRAPED IN THE STERILE FASHION. A MIDLINE SKIN INCISION WAS MADE. A MEDIAL PARAPATELLAR ARTHROTOMY WAS MADE. THE PATELLA WAS EVERTED. THERE WAS TRICOMPARTMENT DJD. THERE WAS MINIMAL PATELLA DJD. AN INTRAMEDULLARY MILO WAS PLACED IN THE FEMUR. A DISTAL FEMORAL CUT WAS MADE IN 5 DEGREES OF VALGUS REMOVING APPROXIMATELY 11 MM OF BONE FROM THE DISTAL FEMUR. THE FEMUR WAS SIZED TO 62.5. A 62.5 FEMORAL CUTTING BLOCK WAS PLACED IN 3 DEGREES OF EXTERNAL ROTATION AND IN ALIGNMENT WITH TAJ'S LINE AND THE TRANSEPICONDYLAR AXIS. ANTERIOR POSTERIOR AND CHAMFER CUTS WERE MADE. THE CUTS WERE EXCELLENT. NEXT AN INTRAMEDULLARY CUTTING GUIDE WAS PLACED IN THE TIBIA. A TRANS TIBIAL CUT WAS MADE ALONG THE LONG AXIS OF THE TIBIA. APPROXIMATELY 10 MM OF BONE WAS REMOVED FROM THE HIGH SIDE OF THE TIBIA. THE TIBIA WAS THEN PLANED TO A SMOOTH SURFACE. POSTERIOR FEMORAL OSTEOPHYTES WERE REMOVED FROM THE FEMORAL CONDYLES. A 67 TIBIAL TRIAL WAS PLACED IN ALIGNMENT WITH THE 1/3 MEDIAL ASPECT OF THE TIBIAL TUBERCLE. THEN A 62.5 FEMORAL TRIAL COMPONENT WAS PLACED. BOTH HAD EXCELLENT FITS. EVENTUALLY A 12 MM POLYETHYLENE TRIAL COMPONENT WAS PLACED. THE KNEE WAS TAKEN THROUGH A RANGE OF MOTION. THE KNEE CAME OUT TO FULL EXTENSION. THERE WAS NO ABNORMAL TILT TO THE PATELLA. THERE WAS GOOD A/P AND VARUS/VALGUS STABILITY. THERE WAS NO EXCESSIVE ROLL BACK WITH FLEXION. THE TRIAL COMPONENTS WERE REMOVED. THEN A 62.5 FEMORAL COMPONENT AND 67 TIBIAL COMPONENT WITH A 12 POLYETHYLENE COMPONENT WERE CEMENTED INTO PLACE. ONCE THE CEMENT WAS HARD THE KNEE WAS TAKEN THROUGH A ROM AGAIN AND FOUND TO BE STABLE WITH NO PATELLA TILT NO EXCESSIVE ROLL BACK WITH FLEXION AND GOOD STABILITY WITH COMPLETE AND FULL EXTENSION. THE KNEE WAS IRRIGATED WITH STERILE BETADINE AND WATER FOR ABOUT 3 MINUTES. THE BLEEDERS WERE CAUTERIZED. THE ARTHROTOMY WAS REPAIRED WITH NUMBER 1 VICRYL. THE SUB CUTANEOUS LAYER WITH 2-0 VICRYL AND THE SKIN WITH JOY. THE WOUND WAS WASHED AND A STERILE DRESSING WAS APPLIED. PATIENT WAS EXTUBATED. Estimated Blood Loss -150.0 Pathology None sent Complications No immediate complications Condition Stable Disposition PACU
[2024-12-19] MEDS: fentaNYL CITRATE INJ (*CRX) 100 MCG/2 ML VIAL 25 MCG IV PUSH ×2 (10:55→10:58)
--- NOTE | 2024-12-19 12:16 | ADMGEN ---
This patient, Katrin Velazquez, was admitted to [facility] Room 323-01. Patient/family oriented to hospital policies and general routines including ID bracelet, bed and alarms, visiting hours, pain management, procedures, bathroom and other care routines, personal items, smoking policy, room service/diet, and visiting hours. Information on how to activate the Rapid Response Team has been discussed. Patient/Family are encouraged to report perceived risks to care and to ask questions if they do not understand what they are told or what they should do.
[2024-12-19] MEDS: VITAMIN B COMPLEX CAPSULE 1 CAP PO (12:40)
[2024-12-19] MEDS: CELECOXIB 200 MG CAPSULE PO ×2 (12:40→16:52)
[2024-12-19] MEDS: ASPIRIN 81 MG ENTERIC TABLET PO ×2 (12:41→20:34)
[2024-12-19] MEDS: SENNA/DOCUSATE SODIUM TABLET 2 TAB PO ×2 (12:41→16:52)
[2024-12-19] MEDS: FAMOTIDINE 20 MG TABLET PO ×2 (12:41→20:34)
[2024-12-19] MEDS: lisinopriL 5 MG TABLET PO (12:41)
[2024-12-19] MEDS: CHOLECALCIFEROL 1,000 UNITS TABLET 2000 UNITS PO (12:42)
[2024-12-19] MEDS: polyethylene glycoL 3350 17 GM POWD.PACK PO (12:42)
[2024-12-19] MEDS: ASCORBIC ACID 500 MG TABLET 1000 MG PO (12:42)
[2024-12-19] MEDS: ACETAMINOPHEN 500 MG TABLET PO ×2 (13:48→20:34)
[2024-12-20 01:11] VITALS: BP 116/48; PULSE 73; RESP 12; TEMP 36.6; O2SAT 97
[2024-12-20] MEDS: ACETAMINOPHEN 500 MG TABLET PO ×3 (02:40→13:45)
[2024-12-20 05:08] VITALS: BP 128/49; PULSE 74; RESP 12; TEMP 36.3; O2SAT 97
[2024-12-20] MEDS: ceFAZolin 2 GM/D5W 50 ML 2 GM/50 ML BAG IVPB (06:14)
[2024-12-20 07:34] LABS: Basophils Percent Auto 0.3 % (0.2-1.2); Eosinophils Percent Auto 0.3 % (0-4.4); Hemoglobin 10.2 g/dL (12.0-15.0); Immature Granulocyte Absolute 0.05 K/mm3 (0.00-0.031); Immature Granulocyte Percent A 0.5 % (0-0.5); Lymphocytes Absolute Auto 1.42 K/mm3 (0.9-3.2); Lymphocytes Percent Auto 13.3 % (18.3-44.2); Mean Corpuscular HGB Conc 31.9 g/dl (32-36); Mean Corpuscular Hemoglobin 30.4 pg (26-34); Mean Corpuscular Volume 95.2 fl (80-100); Mean Platelet Volume 9.2 fl (7.4-10.4); Monocytes Absolute Auto 0.9 K/mm3 (0.1-0.6); Monocytes Percent Auto 8.3 % (2.6-8.5); Neutrophils Absolute Auto 8.2 K/mm3 (1.3-6.7); Neutrophils Percent Auto 77.3 % (45.5-73.1); Platelet Count Result 200 k/mm3 (150-375); Red Blood Count 3.36 M/mm3 (4.2-5.4); Red Cell Distribution Width 13.9 % (11.5-14.5); White Blood Count 10.7 K/mm3 (4.5-10.0)
[2024-12-20 07:43] LABS: Anion Gap 3 mmol/L (4-12); Blood Urea Nitrogen 21 mg/dL (7-17); Calcium 8.5 mg/dL (8.4-10.2); Carbon Dioxide 29 mmol/L (22-30); Chloride 105 mmol/L (98-107); Estimated CRCL calculation 31 ml/min; Estimated Glomerular Filt Rate > 60; Glucose 87 mg/dL (65-110); Sodium 137 mmol/L (137-145)
[2024-12-20] MEDS: CELECOXIB 200 MG CAPSULE PO (08:13)
[2024-12-20] MEDS: SENNA/DOCUSATE SODIUM TABLET 2 TAB PO (08:13)
[2024-12-20] MEDS: ACIDOPHILUS/BULGARICUS CHEWABLE TABLET 1 TABLET BY MOUTH (08:14)
[2024-12-20] MEDS: CHOLECALCIFEROL 1,000 UNITS TABLET 2000 UNITS PO (08:14)
[2024-12-20] MEDS: FAMOTIDINE 20 MG TABLET PO (08:14)
[2024-12-20] MEDS: ASPIRIN 81 MG ENTERIC TABLET PO (08:15)
[2024-12-20] MEDS: VITAMIN B COMPLEX CAPSULE 1 CAP PO (08:15)
[2024-12-20] MEDS: lisinopriL 5 MG TABLET PO (08:15)
[2024-12-20] MEDS: ASCORBIC ACID 500 MG TABLET 1000 MG PO (08:16)
[2024-12-20 09:27] VITALS: BP 138/58; PULSE 78; RESP 18; TEMP 36.2; O2SAT 99
--- NOTE | 2024-12-20 11:43 | PM.PNORT ---
Progress Note: A&P Assessment and Plan (1) S/P total knee arthroplasty: Code(s): Z96.659 - Presence of unspecified artificial knee joint Status: Acute Assessment and Plan: POD 1 DOING WELL. OK TO DC HOMNE F/U IN 3 WEEKS Subjective Subjective Date/Time Seen: 12/20/24 11:43 Interval history: POD 1 DOING WELL. NO CALF PAIN. GOOD PROGRESS WITH PT Exam Extrem: Other: VSS AFBERILE DRESSING DRY NV INTACT CALF SOFT NON TENDER NEG HOMANS SIGN Objective Data Vital Signs Vital Signs: Vital Signs - 24 hr 12/19/24 11:57 12/19/24 12:27 12/19/24 13:26 Temperature 36.3 C L 36.2 C L Pulse Rate 73 70 Respiratory Rate 20 20 Blood Pressure 165/61 H 153/64 H Pulse Oximetry 100 97 Oxygen Delivery Room Air 12/19/24 13:27 12/19/24 14:02 12/19/24 17:27 Temperature 36.3 C L 36.6 C Pulse Rate 72 84 Respiratory Rate 20 18 Blood Pressure 150/70 H 120/60 Pulse Oximetry 98 96 Oxygen Delivery Room Air 12/19/24 21:27 12/20/24 01:11 12/20/24 05:08 Temperature 36.2 C L 36.6 C 36.3 C L Pulse Rate 78 73 74 Respiratory Rate 16 12 12 Blood Pressure 115/47 L 116/48 L 128/49 L Pulse Oximetry 98 97 97 Oxygen Delivery 12/20/24 09:27 Temperature 36.2 C L Pulse Rate 78 Respiratory Rate 18 Blood Pressure 138/58 L Pulse Oximetry 99 Oxygen Delivery Intake/Output Intake/Output: Intake & Output 12/17/24 12/18/24 12/19/24 12/20/24 23:59 23:59 23:59 23:59 Intake Total 1310 486 Balance 1310 486 Meds/Results Medications: Active Medications Generic Name Dose Route Start Last Admin Trade Name Freq PRN Reason Stop Dose Admin Acetaminophen 500 mg 12/19/24 11:42 12/20/24 08:10 Acetaminophen 500 Mg Tablet PO 500 mg Q6H PRN Administration Pain Rated 1-3 Ascorbic Acid 1,000 mg 12/19/24 11:42 12/20/24 08:16 Ascorbic Acid 500 Mg Tablet PO 1,000 mg DAILY ERIC Administration Aspirin 81 mg 12/19/24 11:42 12/20/24 08:15 Aspirin 81 Mg Enteric Tablet PO 81 mg Q12HR ERIC Administration Celecoxib 200 mg 12/19/24 11:42 12/20/24 08:13 Celecoxib 200 Mg Capsule PO 200 mg BIDWM ERIC Administration Diazepam 5 mg 12/19/24 11:42 Diazepam (*Crx) 5 Mg Tablet PO Q8H PRN Spasms Diphenhydramine HCl 25 mg 12/19/24 11:42 Diphenhydramine Hcl Inj 50 Mg/Ml Vial IV PUSH Q6H PRN Itching Famotidine 20 mg 12/19/24 11:42 12/20/24 08:14 Famotidine 20 Mg Tablet PO 20 mg Q12HR ERIC Administration Hydromorphone HCl 1 mg 12/19/24 12:05 Hydromorphone Hcl Inj (*Crx) 2 Mg/Ml Vial IV PUSH Q2H PRN Breakthrough Pain Rated 7-10 or NPO Hydromorphone HCl 0.5 mg 12/19/24 12:06 Hydromorphone Hcl Inj (*Crx) 2 Mg/Ml Vial IV PUSH Q2H PRN Breakthrough Pain Rated 4-6 or NPO Ibuprofen 800 mg in 200 mls @ 400 mls/hr 12/19/24 11:42 Caldolor 800 Mg/200 Ml IVPB Q6H PRN Breakthrough Pain Rated 1-3 or NPO Lactobacillus Acidophilus 1 tablet 12/20/24 09:00 12/20/24 08:14 Acidophilus/Bulgaricus Chewable Tablet BY MOUTH 1 tablet DAILY ERIC Administration Lisinopril 5 mg 12/19/24 11:42 12/20/24 08:15 Lisinopril 5 Mg Tablet PO 5 mg DAILY ERIC Administration Naloxone HCl 0.1 mg 12/19/24 11:42 Naloxone Hcl 0.4 Mg/Ml Vial IV PUSH Q2M PRN Opiate Reversal Ondansetron HCl 4 mg 12/19/24 11:42 Ondansetron Inj 4 Mg/2 Ml Vial IV PUSH Q4H PRN Nausea And Vomiting Oxycodone/Acetaminophen 1 tablet 12/19/24 11:42 Oxycodone/Acetaminophen (*Crx) 5-325 Mg Tablet PO Q4H PRN Pain Rated 4-6 Oxycodone/Acetaminophen 1 tab 12/19/24 11:42 Oxycodone/Acetaminophen (*Crx) 10-325 Mg Tablet PO Q6H PRN Pain Rated 7-10 Polyethylene Glycol 17 gm 12/19/24 11:42 12/20/24 08:16 Polyethylene Glycol 3350 17 Gm Powd.Pack PO Not Given QAM ERIC Senna/Docusate Sodium 2 tab 12/19/24 11:42 12/20/24 08:13 Senna/Docusate Sodium Tablet PO 2 tab BID ERIC Administration Vitamin B Complex 1 cap 12/19/24 11:42 12/20/24 08:15 Vitamin B Complex Capsule PO 1 cap DAILY ERIC Administration Vitamin D 2,000 units 12/19/24 11:42 12/20/24 08:14 Cholecalciferol 1,000 Units Tablet PO 2,000 units DAILY ERIC Administration Radiology Results: ITS Impressions Knee X-Ray 12/19/24 10:14 IMPRESSION: No acute osseous abnormality left knee. Total knee arthroplasty. Labs Labs: Laboratory Results - last 24 hr 12/20/24 06:52 WBC 10.7 H RBC 3.36 L Hgb 10.2 L Hct 32.0 L MCV 95.2 MCH 30.4 MCHC 31.9 L RDW 13.9 Plt Count 200 MPV 9.2 Immature Gran % (Auto) 0.5 Neut % (Auto) 77.3 H Lymph % (Auto) 13.3 L [place] % (Auto) 8.3 Eos % (Auto) 0.3 Baso % (Auto) 0.3 Lymph # (Auto) 1.42 [place] # (Auto) 0.9 H Eos # (Auto) 0.0 Baso # (Auto) 0.0 Abs Immat Gran (auto) 0.05 H Absolute Neuts (auto) 8.2 H Absolute Nucleated RBC 0.000 Nucleated RBC % 0.0 Sodium 137 Potassium 4.0 Chloride 105 Carbon Dioxide 29 Anion Gap 3 L BUN 21 H Creatinine 0.78 Estim Creat Clear Calc 31 Estimated GFR > 60 Glucose 87 Calcium 8.5
[2024-12-20 13:27] VITALS: BP 127/54; PULSE 80; RESP 16; TEMP 36.5; O2SAT 100
[2024-12-20 13:31] VITALS: O2SAT 97
== END 2024-12-20 14:15 | disposition home health service (06) ==
LOC: ANHSURGERY 05:56 → ANH3MEDSUR 11:57
PROVIDERS: PCP Family Medicine; Visit Provider Orthopaedic Surgery
PROC: (CPT 27447; principal; 2024-12-19 07:30)
DX: M17.12 Unilateral primary osteoarthritis, left knee (principal); G89.18 Other acute postprocedural pain; Z79.899 Other long term (current) drug therapy
CPT/HCPCS: 27447; 64447; 36415; 73560; 80048; 85025; 97110; 97116; 97161; 97165; 97530; 97535; A9270; C1713; C1776; J0171; J0690; J1100; J1171; J1885; J2003; J2270; J2405; J2704; J2795; J3010; J3370; J7120